=== PATIENT | male | born 1960 | race African-American/Black ===

== ENCOUNTER 2020-07-15 20:37 | Inpatient (IN) | payer MEDICARE ==
[~2020-07-15 20:37] MED LIST: Glycopyrrolate 0.2 MG/ML 5 ML SYRINGE ONE; Iopamidol 370 76% 100 ML VIAL ONE; Iopamidol-370 76% 500 ML 1 ML ONE; Ondansetron PF 4 MG/2 ML Vial ONE; PHENYLEPHRINE-NS 100 MCG/ML 10 ML SYRINGE ONE; Rocuronium Bromide 10 MG/ML (10ML VIAL) ONE; Succinylcholine 200 MG/10 ml SYRINGE FS ONE; ePHEDrine 50 MG/ML VIAL ONE
--- NOTE | 2020-07-15 20:54 | CT ---
Head CT without contrast: 07/15/2020 COMPARISON: None HISTORY: Stroke protocol TECHNIQUE: Axial CT imaging at 2.5 mm intervals from vertex through skull base without contrast. Chris nal and sagittal reformatted imaging obtained. FINDINGS: There is no intracranial hemorrhage, midline shift, or mass effect. There is a extra-axial mass with internal foci of coarse calcification measuring approximately 2.4 cm within the inferior right frontotemporal region on axial image 24. A meningioma is favored. No acute osseous abnormality. IMPRESSION: No intracranial hemorrhage. Probable right-sided meningioma. Results called to Dr. Goode 8:50 PM 07/15/2020
[2020-07-15 21:32] LABS: #Basophils 0.1 thou/uL (0.0-0.2); #Eosinphils 0.1 thou/uL (0.0-0.7); #Lymphocytes 1.1 thou/uL (1.20-3.40); #Monocytes 0.9 thou/uL (0.11-0.59); #Neutrophils 11.6 thou/uL (1.40-6.50); %Basophils 0.4 % (0.0-1.0); %Eosinophils 0.7 % (0.0-10.0); %Lymphocytes 7.8 % (21.0-51.0); %Monocytes 6.7 % (0.0-10.0); %Neutrophils 84.4 % (42.0-75.0); Hemoglobin 13.2 g/dL (14.0-18.0); Mean Corpuscular HGB CONC 31.6 g/dL (32.0-36.0); Mean Corpuscular Hemoglobin 29.9 pg (27.0-31.0); Mean Corpuscular Volume 94.5 fL (78.0-98.0); Platelet Count 181 thou/uL (130-400); RBC Distribution Width 12.6 % (11.5-14.5); Red Blood Cell (RBC) Count 4.42 mill/uL (4.70-6.10); White Blood Cell (WBC) Count 13.7 thou/uL (4.8-10.8)
[2020-07-15] MEDS ORDERED: Heparin 10,000 UNITS/ 10 ML VIAL ONE (21:35)
[2020-07-15 21:38] LABS: INR-International Normal Ratio 1.3; PTT 32.1 sec (22.9-36.1); Prothrombin Time 16.1 sec (12.0-14.7)
[2020-07-15] MEDS ORDERED: Fentanyl 100 MCG/2 ML VIAL ONE (21:39)
[2020-07-15 21:50] LABS: ALT (SGPT) 8 U/L (8-55); AST (SGOT) 15 U/L (5-34); Albumin 2.3 g/dL (3.4-4.8); Alkaline Phosphatase 91 U/L (40-110); Anion Gap 13 mmol/L (10-20); BUN (Urea Nitrogen) 42 mg/dL (8.4-25.7); Bilirubin, Total 0.5 mg/dL (0.2-1.2); CK (CPK) 42 U/L (30-200); Calc. Creatinine Clearance 0 mL/min (70-130); Calcium 6.9 mg/dL (7.8-10.44); Carbon Dioxide 21 mmol/L (23-31); Chloride 107 mmol/L (98-107); Globulin 2.5 g/dL (2.4-3.5); Glucose 83 mg/dL (80-115); Potassium 4.5 mmol/L (3.5-5.1); Protein, Total 4.8 g/dL (5.8-8.1); Sodium 136 mmol/L (136-145)
[2020-07-15] MEDS ORDERED: Ketamine 50 MG/ML (10ML VIAL) ONE (22:01)
[2020-07-15] MEDS ORDERED: Phenylephrine 10 MG/ML VIAL ONE (22:02)
[2020-07-15 22:04] LABS: CKMB 1.8 ng/mL (0-6.6)
[2020-07-15] MEDS ORDERED: Labetalol HCl 100 MG/20 ML VIAL SLOW IVP PRN (22:42)
[2020-07-15] MEDS ORDERED: niCARdipine 25 MG in Sodium Chloride 0.9% 250 ML 240 ML IVPB PRN (22:42)
[2020-07-15] MEDS ORDERED: hydrALAZINE 20 MG/ML VIAL SLOW IVP PRN (22:42)
[2020-07-15] MEDS ORDERED: Mag-Al 1200 mg/1200 mg/30 ML UDCUP PO PRN (22:42)
[2020-07-15] MEDS ORDERED: SUGAMMADEX SODIUM 200 MG/2 ML VIAL ONE (22:48)
[2020-07-15 22:57] LABS: SARS-CoV-2 NAA Rapid Test Not Detected (NotDetected)
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
[2020-07-16 00:31] LABS: Anion Gap 16 mmol/L (10-20); BUN (Urea Nitrogen) 42 mg/dL (8.4-25.7); Calc. Creatinine Clearance 51 mL/min (70-130); Calcium 7.8 mg/dL (7.8-10.44); Carbon Dioxide 16 mmol/L (23-31); Chloride 107 mmol/L (98-107); Glucose 91 mg/dL (80-115); Potassium 5.5 mmol/L (3.5-5.1); Sodium 133 mmol/L (136-145)
--- NOTE | 2020-07-16 02:27 | PDOC.HHP ---
Hospitalist HPI Right sided weakness History of Present Illness: 59-year-old -Burkin[place] male with past medical history of severe systolic CHF with EF of 10 to 15%, dilated cardiomyopathy, recurrent pleural effusions and recurrent ascites on every 2 weekly paracentesis, last episode was 1 week ago with patient reported 10 L of fluid removal, history of A. fib on amiodarone and on chronic anticoagulation with Eliquis; chronic hypotension, CKD stage III admitted after developing sudden onset right-sided weakness. CTA [place] of [place] imaging shows complete occlusion of the distal ICA artery with occlusion of the proximal MCA and SORAIDA on the right. Patient patient was felt not to be a candidate for TPA given Eliquis use. He was taking to [facility] and underwent a mechanical thrombectomy with confucianism of flow to the right middle cerebral artery. Post procedure patient is extubated and in CCU now. His blood pressure is running in the high 80s over 50s but with MAP over 70s. He still intermittently drowsy but conversant. He is able to answer simple questions. He denies any symptoms now. He denies any headache or dizziness. He states he has chronic low blood pressure. Hospitalist team consulted for comanagement Allergies/Adverse Reactions: Allergy/AdvReac Type Severity Reaction Status Date / Time spironolactone Allergy Verified 07/13/20 14:04 Home Medications: Medication Instructions Recorded Confirmed Type Furosemide 60 mg PO TID 05/30/20 07/13/20 History Amiodarone [Cordarone] 200 mg PO BID 06/14/20 07/13/20 History Apixaban [Eliquis] 5 mg PO BID 06/14/20 07/13/20 History Carvedilol [Coreg] 3.125 mg PO BID 06/14/20 07/13/20 History Digoxin [Digox] 62.5 mcg PO DAILY 06/14/20 07/13/20 History Acetaminophen W/ Codeine 1 tab PO DAILY PRN 06/21/20 07/13/20 History [Acetaminophen/Codeine #3] Past History: PMHx: Chronic hypertension Dilated cardiomyopathy Systolic CHF Atrial fibrillation Recurrent ascites Pleural effusions CKD PSHx: Extensive FHx: Noncontributory Social: Former smoker currently quit, no history of alcohol or illicit drug use Hospitalist HPI ROS All other systems reviewed; all pertinent +/- noted in HPI/Subj Hospitalist Exam Vitals: Vital Signs (12 hours) Pulse Ox 07/15/20 23:30 96 Weight Weight 184 lb 1.376 oz Most Recent Monitor Data Heart Rate from ECG 70 NIBP 89/68 NIBP BP-Mean 75 Respiration from ECG 2 SpO2 99 General Appearance: NAD, awake alert General - other findings: Intermittently drowsy but conversant Eye: PERRL, anicteric sclera ENT: normocephalic atraumatic, dry oral mucosa Neck: supple, symmetric Heart: RRR, no murmur Respiratory: CTAB, no wheezes Gastrointestinal: soft, non-tender, distended Extremities: no cyanosis, no clubbing, no edema Skin: normal turgor, no lesions Neurological: facial droop (Right facial droop, no pronator drift) Musculoskeletal: normal tone, normal strength Psychiatric: normal affect, normal behavior, A&O x 3 Hospitalist Results Result Diagrams: 07/15/20 21:06 07/15/20 23:51 Lab results: Laboratory Last Values WBC 13.7 thou/uL (4.8-10.8) H 07/15/20 21:06 RBC 4.42 mill/uL (4.70-6.10) L 07/15/20 21:06 Hgb 13.2 g/dL (14.0-18.0) L 07/15/20 21:06 Hct 41.8 % (42.0-52.0) L 07/15/20 21:06 MCV 94.5 fL (78.0-98.0) 07/15/20 21:06 MCH 29.9 pg (27.0-31.0) 07/15/20 21:06 MCHC 31.6 g/dL (32.0-36.0) L 07/15/20 21:06 RDW 12.6 % (11.5-14.5) 07/15/20 21:06 Plt Count 181 thou/uL (130-400) 07/15/20 21:06 MPV 9.0 fL (7.4-10.4) 07/15/20 21:06 Neutrophils % 84.4 % (42.0-75.0) H 07/15/20 21:06 Lymphocytes % 7.8 % (21.0-51.0) L 07/15/20 21:06 Monocytes % 6.7 % (0.0-10.0) 07/15/20 21:06 Eosinophils % 0.7 % (0.0-10.0) 07/15/20 21:06 Basophils % 0.4 % (0.0-1.0) 07/15/20 21:06 Neutrophils # 11.6 thou/uL (1.40-6.50) H 07/15/20 21:06 Lymphocytes # 1.1 thou/uL (1.20-3.40) L 07/15/20 21:06 Monocytes # 0.9 thou/uL (0.11-0.59) H 07/15/20 21:06 Eosinophils # 0.1 thou/uL (0.0-0.7) 07/15/20 21:06 Basophils # 0.1 thou/uL (0.0-0.2) 07/15/20 21:06 PT 16.1 sec (12.0-14.7) H 07/15/20 21:06 INR 1.3 07/15/20 21:06 APTT 32.1 sec (22.9-36.1) 07/15/20 21:06 Sodium 133 mmol/L (136-145) L 07/15/20 23:51 Potassium 5.5 mmol/L (3.5-5.1) H 07/15/20 23:51 Chloride 107 mmol/L (98-107) 07/15/20 23:51 Carbon Dioxide 16 mmol/L (23-31) L 07/15/20 23:51 Anion Gap 16 mmol/L (10-20) 07/15/20 23:51 BUN 42 mg/dL (8.4-25.7) H 07/15/20 23:51 Creatinine 1.79 mg/dL (0.7-1.3) H 07/15/20 23:51 Estimated GFR (MDRD) 47 07/15/20 23:51 Glucose 91 mg/dL (80-115) 07/15/20 23:51 Calcium 7.8 mg/dL (7.8-10.44) 07/15/20 23:51 Total Bilirubin 0.5 mg/dL (0.2-1.2) 07/15/20 21:06 AST 15 U/L (5-34) 07/15/20 21:06 ALT 8 U/L (8-55) 07/15/20 21:06 Alkaline Phosphatase 91 U/L (40-110) 07/15/20 21:06 Creatine Kinase 42 U/L (30-200) 07/15/20 21:06 CK-MB (CK-2) 1.8 ng/mL (0-6.6) 07/15/20 21:06 Troponin I 0.159 ng/mL (< 0.028) H 07/15/20 21:06 Serum Total Protein 4.8 g/dL (5.8-8.1) L 07/15/20 21:06 Albumin 2.3 g/dL (3.4-4.8) L 07/15/20 21:06 Globulin 2.5 g/dL (2.4-3.5) 07/15/20 21:06 Albumin/Globulin Ratio 0.9 g/dL (1.2-2.2) L 07/15/20 21:06 SARS-CoV-2 Rap RNA(RT-PCR) Not Detected (NotDetected) 07/15/20 21:49 Hospitalist H&P A/P (1) Right sided cerebral infarction Code(s): I63.9 - CEREBRAL INFARCTION, UNSPECIFIED Status: Acute (2) Hyperkalemia Code(s): E87.5 - HYPERKALEMIA Status: Acute (3) Acute kidney injury Code(s): N17.9 - ACUTE KIDNEY FAILURE, UNSPECIFIED Status: Acute (4) History of chronic kidney disease Code(s): Z87.448 - PERSONAL HISTORY OF OTHER DISEASES OF URINARY SYSTEM Status: Acute (5) Atrial fibrillation Code(s): I48.91 - UNSPECIFIED ATRIAL FIBRILLATION Status: Acute (6) Chronic anticoagulation Code(s): Z79.01 - LONG-TERM (CURRENT) USE OF ANTICOAGULANTS Status: Acute (7) Metabolic acidosis Code(s): E87.2 - ACIDOSIS Status: Acute (8) Chronic hypotension Code(s): I95.89 - OTHER HYPOTENSION Status: Acute Plan: New CVAwith right cerebral involvementstatus post mechanical thrombectomy Continue neurology follow-up Continue plan for Eliquis Continue anticoagulation Allow for permissive hypertension Chronic hypotensionstable MAP but given acute CVA will need blood pressure higher Given recurrent ascites we avoid fluid overload Start midodrine 5 mg 3 times daily Recurrent ascites still mild distention, but no urgent need for paracentesis now Acute on chronic chronic kidney injuryobtain urine nephrology consult Correct metabolic acidosis Obtain urine sodium/creatinine Likely due to cardiorenal syndrome Metabolic acidosis with hyperkalemiawe will start sodium bicarb Avoid nephrotoxin Systolic CHF/atrial fibrillationresume Eliquis Advance directivefull code Thank you for this consult, we will continue to follow
[2020-07-16 04:06] LABS: Cardiac Risk 2.8 (Less than 4.5)
[2020-07-16 04:08] LABS: Troponin I 0.145 ng/mL (< 0.028)
--- NOTE | 2020-07-16 07:40 | CT ---
PRELIMINARY REPORT/[facility]/EMERGENCY AFTER HOURS PROCEDURE: EXAM: CT Head Without Intravenous Contrast. CLINICAL HISTORY: CVA FOLLOW UP TECHNIQUE: Axial computed tomography images of the head/brain without intravenous contrast. COMPARISON: July 15, 2020 FINDINGS: BRAIN: No acute intraparenchymal hemorrhage. 2.3 cm partially calcified meningioma in the region of the nancy vian fissure complex on the right is again noted. No CT evidence for acute territorial infarct. No m idline shift or extra-axial collection. VENTRICLES: No hydrocephalus. ORBITS: The orbits are unremarkable. SINUSES AND MASTOIDS: The paranasal sinuses and mastoid air cells are clear. SOFT TISSUES: No significant facial or scalp soft tissue swelling evident. No radiopaque foreign body is seen. BONES: No acute skull fracture. IMPRESSION: No acute intracranial abnormality. ELECTRONICALLY SIGNED BY: Papi Shaw MD Jul 16, 2020 4:48:19 AM REVENUE OFFICER This report is intended for review by the ordering physician only, in accordance of law. If you recei ve this report in error, please call [facility] at [phone]. FINAL REPORT HEAD CT WITHOUT CONTRAST: HISTORY: Follow-up CVA. COMPARISON: 07/15/2020. FINDINGS: No parenchymal hemorrhage. No extra-axial hematoma. No midline shift. Basilar cisterns are patent. Brain volume is age-appropriate. There is loss of the insular ribbon sign suggesting cytotoxic edema involving the right temporal lobe . Basilar cisterns are patent. No midline shift. No evidence of hydrocephalus. Calvarium is intact. Adequate aeration of the sinuses and mastoid air cells. IMPRESSION: 1. This report is in DISAGREEMENT with the initial report by [facility]. 2. There appears to be loss of the right insular ribbon sign suggesting changes due to a right MCA d istribution infarct. Better interrogation with brain MRI may be beneficial. POS: PPP
[2020-07-16] MEDS: Sodium Bicarbonate Tab 325 MG TAB PO SCH ×3 (11:54→20:40)
[2020-07-16] MEDS: Midodrine HCl 5 MG TAB PO SCH ×3 (11:54→20:40)
[2020-07-16 13:06] LABS: Potassium, Urine 52.2 mmol/L; Sodium, Urine Less than 20 mmol/L (Not Available)
--- NOTE | 2020-07-16 15:04 | CON ---
NEUROLOGY CONSULTATION DATE OF CONSULTATION: 07/16/2020 REASON FOR CONSULTATION: CVA status post mechanical thrombectomy. HISTORY OF PRESENT HISTORY: Marci is a 59-year-old male with medical history significant for severe systolic congestive heart failure with ejection fraction of 10% to 15%, dilated cardiomyopathy, recurrent pleural effusions and ascites on weekly paracentesis, presented with acute onset right-sided weakness. The head CT was done, which was negative for acute intracranial pathology. CTA of the [place] showed complete occlusion of the distal ICA with occlusion of the proximal MCA and SORAIDA on the right. The patient was on Eliquis, so not a candidate for tPA. He was taken to the cath lab tech and underwent mechanical thrombectomy with baptism of flow to the right middle cerebral artery. He was extubated. The patient was extubated postprocedure and is currently in ICU and is doing well. The patient denies nausea, vomiting, headache, chest pain, abdominal pain, recent illness or recent exposure to COVID.-19. He also denies problems with speech, swallowing, double vision, loss of vision or loss of consciousness, abnormal involuntary movements associated with the episode. Allergies/Adverse Reactions: Allergy/AdvReac Type Severity Reaction Status Date / Time spironolactone Allergy Verified 07/13/20 14:04 Home Medications: Medication Instructions Recorded Confirmed Type Furosemide 60 mg PO TID 05/30/20 07/13/20 History Amiodarone [Cordarone] 200 mg PO BID 06/14/20 07/13/20 History Apixaban [Eliquis] 5 mg PO BID 06/14/20 07/13/20 History Carvedilol [Coreg] 3.125 mg PO BID 06/14/20 07/13/20 History Digoxin [Digox] 62.5 mcg PO DAILY 06/14/20 07/13/20 History Acetaminophen W/ Codeine 1 tab PO DAILY PRN 06/21/20 07/13/20 History [Acetaminophen/Codeine #3] PAST MEDICAL HISTORY: Chronic hypertension, dilated cardiomyopathy, systolic congestive heart failure, atrial fibrillation, recurrent ascites, pleural effusions, chronic kidney disease. PAST SURGICAL HISTORY: Multiple surgeries. FAMILY HISTORY: Noncontributory. SOCIAL HISTORY: The patient is a former smoker. Denies alcohol or illegal drug use. REVIEW OF SYSTEMS: All systems reviewed and were negative except the pertinent positives and negatives mentioned in the HPI. PHYSICAL EXAMINATION: CVS: Regular rate and rhythm. CHEST: Clear. ABDOMEN: Soft. NECK: Supple. NEUROLOGIC: Mental Status: The patient is alert and oriented to person, place, and time. Speech is clear. Cranial nerves 2 through 12 intact except 7, right facial droop. Motor, muscle, tone and bulk are normal. Right pronator drift. . Sensory intact. Cerebellar, finger-nose testing intact. Gait deferred due to patient's safety reason. DATA REVIEWED: Reviewed the labs were significant for white count of 13.7. Hyponatremia 133 sodium and 5.5 hyperkalemia. He also has chronic kidney disease with BUN of 42 and creatinine of 1.79. Head CT did not reveal acute intracranial pathology. WBC 13.7 thou/uL (4.8-10.8) H 07/15/20 21:06 RBC 4.42 mill/uL (4.70-6.10) L 07/15/20 21:06 Hgb 13.2 g/dL (14.0-18.0) L 07/15/20 21:06 Hct 41.8 % (42.0-52.0) L 07/15/20 21:06 MCV 94.5 fL (78.0-98.0) 07/15/20 21:06 MCH 29.9 pg (27.0-31.0) 07/15/20 21:06 MCHC 31.6 g/dL (32.0-36.0) L 07/15/20 21:06 RDW 12.6 % (11.5-14.5) 07/15/20 21:06 Plt Count 181 thou/uL (130-400) 07/15/20 21:06 MPV 9.0 fL (7.4-10.4) 07/15/20 21:06 Neutrophils % 84.4 % (42.0-75.0) H 07/15/20 21:06 Lymphocytes % 7.8 % (21.0-51.0) L 07/15/20 21:06 Monocytes % 6.7 % (0.0-10.0) 07/15/20 21:06 Eosinophils % 0.7 % (0.0-10.0) 07/15/20 21:06 Basophils % 0.4 % (0.0-1.0) 02/21/21 21:06 Neutrophils # 11.6 thou/uL (1.40-6.50) H 07/15/20 21:06 Lymphocytes # 1.1 thou/uL (1.20-3.40) L 07/15/20 21:06 Monocytes # 0.9 thou/uL (0.11-0.59) H 07/15/20 21:06 Eosinophils # 0.1 thou/uL (0.0-0.7) 07/15/20 21:06 Basophils # 0.1 thou/uL (0.0-0.2) 07/15/20 21:06 PT 16.1 sec (12.0-14.7) H 07/15/20 21:06 INR 1.3 07/15/20 21:06 APTT 32.1 sec (22.9-36.1) 07/15/20 21:06 Sodium 133 mmol/L (136-145) L 07/15/20 23:51 Potassium 5.5 mmol/L (3.5-5.1) H 07/15/20 23:51 Chloride 107 mmol/L (98-107) 07/15/20 23:51 Carbon Dioxide 16 mmol/L (23-31) L 07/15/20 23:51 Anion Gap 16 mmol/L (10-20) 07/15/20 23:51 BUN 42 mg/dL (8.4-25.7) H 07/15/20 23:51 Creatinine 1.79 mg/dL (0.7-1.3) H 07/15/20 23:51 Estimated GFR (MDRD) 47 07/15/20 23:51 Glucose 91 mg/dL (80-115) 07/15/20 23:51 Calcium 7.8 mg/dL (7.8-10.44) 07/15/20 23:51 Total Bilirubin 0.5 mg/dL (0.2-1.2) 07/15/20 21:06 AST 15 U/L (5-34) 07/15/20 21:06 ALT 8 U/L (8-55) 07/15/20 21:06 Alkaline Phosphatase 91 U/L (40-110) 07/15/20 21:06 Creatine Kinase 42 U/L (30-200) 07/15/20 21:06 CK-MB (CK-2) 1.8 ng/mL (0-6.6) 07/15/20 21:06 Troponin I 0.159 ng/mL (< 0.028) H 07/15/20 21:06 Serum Total Protein 4.8 g/dL (5.8-8.1) L 07/15/20 21:06 Albumin 2.3 g/dL (3.4-4.8) L 07/15/20 21:06 Globulin 2.5 g/dL (2.4-3.5) 07/15/20 21:06 Albumin/Globulin Ratio 0.9 g/dL (1.2-2.2) L 07/15/20 21:06 SARS-CoV-2 Rap RNA(RT-PCR) Not Detected (NotDetected) 07/15/20 21:49 ASSESSMENT AND PLAN: (1) Right sided cerebral infarction Code(s): I63.9 - CEREBRAL INFARCTION, UNSPECIFIED Status: Acute (2) Hyperkalemia Code(s): E87.5 - HYPERKALEMIA Status: Acute (3) Acute kidney injury Code(s): N17.9 - ACUTE KIDNEY FAILURE, UNSPECIFIED Status: Acute (4) History of chronic kidney disease Code(s): Z87.448 - PERSONAL HISTORY OF OTHER DISEASES OF URINARY SYSTEM Status: Acute (5) Atrial fibrillation Code(s): I48.91 - UNSPECIFIED ATRIAL FIBRILLATION Status: Acute (6) Chronic anticoagulation Code(s): Z79.01 - MCFP (CURRENT) USE OF ANTICOAGULANTS Status: Acute (7) Metabolic acidosis Code(s): E87.2 - ACIDOSIS Status: Acute (8) Chronic hypotension Code(s): I95.89 - OTHER HYPOTENSION Status: Acute Mr. Sergey Covarrubias is a 59-year-old male who presented with acute onset of right-sided weakness. A CTA of the head and neck reviewed, which showed occlusion of the middle cerebral artery. He was taken to the cath lab tech and is status post mechanical thrombectomy and has been doing well. Continue Eliquis for secondary stroke prevention and atrial fibrillation. Neuro checks every 2 hours. Permissive control of blood pressure at this time. Strict control of blood glucose. Telemetry to rule out arrhythmias. Continue home medications. Continue medical management per primary team and Nephrology, Oncology, PT/OT/Speech. MRI of the brain to rule out acute intracranial process. DVT prophylaxis with SCD. We will continue to follow. Thank you for the consult. Job ID: [id number] MTDD
--- NOTE | 2020-07-16 17:08 | MRI ---
MRI BRAIN WITHOUT CONTRAST: History: Follow up CVA. FINDINGS: Correlation is made with the CT scan of 4:33 a.m. from the same date. There is restricted diffusion in the right MCA territory consistent with acute infarction. There is a lso a small focus of restricted diffusion in the right cerebellar hemisphere, consistent with an acut e lacunar infarction. There is no hemorrhage, midline shift, or abnormal extraaxial fluid collections seen. The ventricular size is appropriate and the basilar cisterns patent. IMPRESSION: 1. Right MCA infarction. 2. Acute lacunar infarction in the right cerebellar hemisphere. 3. Clinically correlate for an embolic phenomenon. POS: OFF
--- NOTE | 2020-07-16 19:06 | CON ---
DATE OF CONSULTATION: CONSULTING PHYSICIAN: Janet Vaz MD REQUESTING PHYSICIAN: Josy Rogers MD REASON FOR CONSULTATION: Acute on chronic kidney disease and contrast exposure. IMPRESSION: 1. Acute on chronic kidney disease, likely hemodynamically mediated. 2. Possible incipient contrast nephropathy. 3. Cerebrovascular accident, status post CT angio and thrombolysis. PLAN: 1. The patient is currently on contrast prophylaxis, and we will renally dose all medications and avoid potentially nephrotoxic agents. 2. We will monitor this patient's kidney function closely as the patient stands a significant possible risk of contrast nephropathy that was exacerbating or worsening the current renal status. 3. Further management will be dependent on the clinical course. HISTORY OF PRESENT ILLNESS: A 59-year-old gentleman who presented here with right-sided weakness with a known history of systolic CHF with EF of about 10% to 15% with recurrent pleural effusions, dilated cardiomyopathy, status post paracentesis every [address] angio of the [place] of [place] shows complete occlusion of the distal IC artery with occlusion of the proximal MCA and SORAIDA on the right, having been on Eliquis, felt not to be a candidate for tPA and was taken to the labor contract analyst and did undergo mechanical thrombectomy with rastafari to the right middle cerebral artery. The patient was noted with elevated creatinine of 1.79 with a tendency for this creatinine to rise given status post contrast exposure. As a result of this, the decision was taken to involve Renal in the management of this case. PAST MEDICAL HISTORY: As documented in the body of the history. SOCIAL HISTORY: Showed a remote tobacco user. No current alcohol or tobacco use. REVIEW OF SYSTEMS: As documented in the body of history. All the other systems were reviewed and found not to be significantly related to present illness. FAMILY HISTORY: Nonsignificant. PHYSICAL EXAMINATION: VITAL SIGNS: The patient was found with the following vital signs; blood pressure 199/70 with a heart rate of 75, respiratory rate of 16, and O2 saturations of 99%. HEENT: Unremarkable. CARDIOVASCULAR SYSTEM: First and second heart sounds were heard. RESPIRATORY SYSTEM: Clear to auscultation. DIGESTIVE SYSTEM: Revealed distended abdomen with evidence of ascites. EXTREMITIES: No severe peripheral edema. SKIN: No new gross rash. LYMPHATICS: No peripheral lymphadenopathy. SUMMARY: A 59-year-old gentleman with advanced cardiomyopathy who presented here with cerebrovascular accident, status post tissue plasminogen activator and contrast exposure with evidence of increase in creatinine noted as well as potassium. Thank you for this consultation. We will follow with you. Job ID: [id number]
[2020-07-16] MEDS: Atorvastatin Calcium 40 MG TAB PO SCH (20:40)
[2020-07-16] MEDS: Acetaminophen 325 MG TAB PO PRN (23:55)
[2020-07-17] MEDS: Sodium Bicarbonate Tab 325 MG TAB PO SCH ×3 (07:56→21:37)
[2020-07-17] MEDS: Midodrine HCl 5 MG TAB PO SCH ×3 (07:57→21:36)
--- NOTE | 2020-07-17 10:34 | CT ---
CT angiogram head CT angiogram neck: 07/15/2020 COMPARISON: None HISTORY: Left-sided stroke symptoms TECHNIQUE: Axial CT imaging at 1.25 mm intervals from the lung apices through the vertex with IV cont rast using a CT angiogram protocol. Coronal and sagittal 3-D reformatted imaging obtained. FINDINGS: The imaged lung apices demonstrate scattered subpleural and centrilobular emphysematous wilmer nge. There is an incompletely imaged transvenous pacing device present. The origin of the innominate artery, right common carotid artery, right subclavian artery, left commo n carotid artery, and left subclavian artery demonstrate patency. There is no hemodynamically significant stenosis on the basis of NASCET criteria involving the internal carotid artery or the com mon carotid artery on either side. There is mild atherosclerotic plaque at the origin of bilateral internal carotid arteries. The proximal aspect of the right vertebral artery is completely obscured by venous contrast media. Th e mid and distal right vertebral artery demonstrate patency. The left vertebral artery is dominant. Origin of the left vertebral artery appears unremarkable. The basilar artery is patent. Branches of the basilar artery appear patent. No central vascular occlu marko or saccular aneurysm is seen involving the posterior circulation on either side. There is a filling defect involving the distal intracranial ICA on the right at its bifurcation with extension into the proximal M1 and proximal A1 segment on the right. The distal aspect of the right M1 segment appears completely occluded with diffuse lack of arterial blood flow involving the majorit y of the right MCA territory. The A1 segment is otherwise unremarkable bilaterally. Distal SORAIDA branches appear intact. The M1 segment, MCA bifurcation and the distal MCA branches on the left appea r intact. There is a extra-axial mass on the right in the frontotemporal region with internal calcification and diffuse enhancement measuring 2.4 cm, most consistent with a meningioma. No lymphadenopathy is appreciated within the neck. No acute osseous abnormality is seen. IMPRESSION: Acute thrombosis of the distal intracranial internal carotid artery on the right with ext ension into the proximal right A1 and M1 segment with additional distal right M1 thrombosis and extensive multifocal M2 branch occlusion on the right. Dr. Goode made aware at 9:05 PM 07/15/2020 Transcribed Date/Time: 07/17/2020 10:34 AM
--- NOTE | 2020-07-17 14:35 | PRG ---
DATE OF SERVICE: 07/17/2020 SUBJECTIVE: The patient noted with the following vital signs. OBJECTIVE: VITAL SIGNS: Heart rate of 75, blood pressure 90/63, O2 saturations 100%. HEENT: Unremarkable. CARDIOVASCULAR SYSTEM: First and second heart sounds were heard. RESPIRATORY SYSTEM: Clear to auscultation. DIGESTIVE SYSTEM: Revealed a benign abdomen. EXTREMITIES: No peripheral edema. LABORATORY INVESTIGATION: None. IMPRESSION: 1. Pksru-fr-otyiomm kidney disease hemodynamically mediated. 2. Potential contrast-induced nephropathy. No evidence as there are no labs. PLAN: 1. We will get a chemistry and monitor his renal function closely. 2. Further management to be dependent on the clinical course. Job ID: [id number]
[2020-07-17 14:40] LABS: Anion Gap 14 mmol/L (10-20); BUN (Urea Nitrogen) 44 mg/dL (8.4-25.7); Calc. Creatinine Clearance 55 mL/min (70-130); Calcium 8.7 mg/dL (7.8-10.44); Carbon Dioxide 21 mmol/L (23-31); Chloride 104 mmol/L (98-107); Glucose 98 mg/dL (80-115); Potassium 5.4 mmol/L (3.5-5.1); Sodium 134 mmol/L (136-145)
[2020-07-17] MEDS ORDERED: Aspirin 81 mg Enteric Coated Tablet PO SCH (14:45)
--- NOTE | 2020-07-17 14:59 | PDOC.HOSPP ---
- Subjective Encounter Date: 07/17/20 Encounter Time: 14:45 Subjective: f/u for R MCA CVA s/p mech thrombectomy with mild residual R-sided weakness, persistent mild dysarthria and L facial droop. Tolerating po intake and ambulated short distance in room. - Objective Vital Signs & Weight: Vital Signs (12 hours) Temp Pulse Pulse BP BP Pulse Ox Pulse Ox 07/17/20 12:00 97.5 F L 07/17/20 09:25 84 80 102/75 103/74 95 07/17/20 09:00 97.7 F 07/17/20 08:36 98 07/17/20 07:35 98 07/17/20 04:00 97.5 F L Pulse Ox 07/17/20 12:00 07/17/20 09:25 100 07/17/20 09:00 07/17/20 08:36 07/17/20 07:35 07/17/20 04:00 Weight Admit Weight 182 lb Weight 187 lb 9.814 oz Most Recent Monitor Data Heart Rate from ECG 80 NIBP 99/59 NIBP BP-Mean 72 Respiration from ECG 19 SpO2 98 I&O: 07/16/20 07/17/20 07/18/20 06:59 06:59 06:59 Intake Total 1690 740 Output Total 100 725 170 Balance -100 965 570 Result Diagrams: 07/15/20 21:06 07/18/20 03:31 EKG Reviewed by me: Yes (Tele - SR with PVC's) Hospitalist ROS - Medication Medications: Active Medications Generic Name Dose Route Start Last Admin Trade Name Freq PRN Reason Stop Dose Admin Acetaminophen 650 mg 07/15/20 22:42 07/16/20 23:55 Acetaminophen 325 Mg Tab PO 650 mg Q6H PRN Administration Headache/Fever/Mild Pain (1-3) Atorvastatin Calcium 40 mg 07/16/20 21:00 07/16/20 20:40 Atorvastatin Calcium 40 Mg Tab PO 40 mg HS CHANO Administration Midodrine 5 mg 07/16/20 09:00 07/17/20 14:43 Midodrine Hcl 5 Mg Tab PO 5 mg TID CHANO Administration Sodium Bicarbonate 1,300 mg 07/16/20 09:00 07/17/20 14:42 Sodium Bicarbonate Tab 325 Mg Tab PO 1,300 mg TID CHANO Administration Sodium Chloride 10 ml 07/16/20 09:00 07/17/20 07:57 Flush - Normal Saline 10 Ml Syringe IVF 10 ml Q12HR CHANO Administration Hospitalist Exam Vitals: Vital Signs (12 hours) Temp Pulse Pulse BP BP Pulse Ox Pulse Ox 07/17/20 12:00 97.5 F L 07/17/20 09:25 84 80 102/75 103/74 95 07/17/20 09:00 97.7 F 07/17/20 08:36 98 07/17/20 07:35 98 07/17/20 04:00 97.5 F L Pulse Ox 07/17/20 12:00 07/17/20 09:25 100 07/17/20 09:00 07/17/20 08:36 07/17/20 07:35 07/17/20 04:00 Weight Admit Weight 182 lb Weight 187 lb 9.814 oz Most Recent Monitor Data Heart Rate from ECG 80 NIBP 99/59 NIBP BP-Mean 72 Respiration from ECG 19 SpO2 98 General Appearance: NAD, awake alert Eye: PERRL, anicteric sclera ENT: normocephalic atraumatic, no oropharyngeal lesions Neck: supple, symmetric, no JVD, no thyromegaly, no lymphadenopathy Heart: RRR, no gallops, no rubs, normal peripheral pulses Heart - other findings: S1, S2 Respiratory: CTAB, no wheezes, no rales, no ronchi, normal chest expansion Gastrointestinal: soft, non-tender, non-distended, normal bowel sounds, no palpable masses Extremities: no cyanosis, no clubbing, no edema Skin: normal turgor Neurological - other findings: L facial droop, dysarthria, LUE weakness Musculoskeletal: generalized weakness Psychiatric: normal affect, A&O x 3 Hosp A/P (1) Right sided cerebral infarction Code(s): I63.9 - CEREBRAL INFARCTION, UNSPECIFIED Status: Acute Plan: s/p [facility] thrombectomy, mild residual deficits noted, start ASA 81mg daily (2) Acute kidney injury Code(s): N17.9 - ACUTE KIDNEY FAILURE, UNSPECIFIED Status: Acute Plan: Avoid nephrotoxic meds and limit contrast exposure, serial creatinine (3) Atrial fibrillation Code(s): I48.91 - UNSPECIFIED ATRIAL FIBRILLATION Status: Chronic Qualifiers: Atrial fibrillation type: longstanding persistent Qualified Code(s): I48.11 - Longstanding persistent atrial fibrillation Plan: Resume Eliquis (4) Chronic anticoagulation Code(s): Z79.01 - PRISON (CURRENT) USE OF ANTICOAGULANTS Status: Acute Plan: Resume Eliquis (5) Chronic hypotension Code(s): I95.89 - OTHER HYPOTENSION Status: Acute (6) Metabolic acidosis Code(s): E87.2 - ACIDOSIS Status: Acute Plan: Improved, continue to monitor - Plan plan discussed w/ family, PT/OT, social media job titles, speech therapy, out of bed/ambulate, DVT proph w/SCDs Stable overall Continue routine stroke protocol Start ASA 81mg daily Resume Eliquis 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 SNF vs HH with PT AM lab: BMP
--- NOTE | 2020-07-17 16:02 | PDOC.NEUPN ---
- Subjective Encounter Date: 07/17/20 Subjective: Mr Covarrubias is doing much better and seems to be improved except for facial droop and dysarthria. - Objective Vital Signs & Weight: Vital Signs (12 hours) Temp Pulse Pulse BP BP Pulse Ox Pulse Ox 07/17/20 15:00 97.5 F L 07/17/20 12:00 97.5 F L 07/17/20 09:25 84 80 102/75 103/74 95 07/17/20 09:00 97.7 F 07/17/20 08:36 98 07/17/20 07:35 98 Pulse Ox 07/17/20 15:00 07/17/20 12:00 07/17/20 09:25 100 07/17/20 09:00 07/17/20 08:36 07/17/20 07:35 Weight Admit Weight 182 lb Weight 187 lb 9.814 oz Most Recent Monitor Data Heart Rate from ECG 78 NIBP 80/59 NIBP BP-Mean 66 Respiration from ECG 13 SpO2 99 I&O: 07/16/20 07/17/20 07/18/20 06:59 06:59 06:59 Intake Total 1690 740 Output Total 100 725 170 Balance -100 965 570 Result Diagrams: 07/15/20 21:06 07/17/20 14:07 Radiology Reviewed by me: Yes EKG Reviewed by me: Yes ROS - Review of Systems Constitutional: denies: fever, chills, sweats, weakness, malaise, other Eyes: denies: pain, vision change, conjunctivae inflammation, eyelid inflammation, redness, other ENT: denies: ear pain, ear discharge, nose pain, nose discharge, nose congestion, mouth pain, mouth swelling, throat pain, throat swelling, other Respiratory: denies: cough, dry, shortness of breath, hemoptysis, SOB with excertion, pleuritic pain, sputum, wheezing, other Gastrointestinal: denies: nausea, vomiting, abdominal pain, diarrhea, constipation, melena, hematochezia, other Genitourinary: denies: dysuria, frequency, incontinence, hematuria, retention, other Musculoskeletal: denies: neck pain, shoulder pain, arm pain, back pain, hand pain, leg pain, foot pain, other Skin: denies: rash, lesions, chiquita, bruising, other Neurological: reports: change in speech. denies: weakness, numbness, incoordination, confusion, seizures, other - Medication Medications: Active Medications Generic Name Dose Route Start Last Admin Trade Name Sae PRN Reason Stop Dose Admin Acetaminophen 650 mg 07/15/20 22:42 07/16/20 23:55 Acetaminophen 325 Mg Tab PO 650 mg Q6H PRN Administration Headache/Fever/Mild Pain (1-3) Atorvastatin Calcium 40 mg 07/16/20 21:00 07/16/20 20:40 Atorvastatin Calcium 40 Mg Tab PO 40 mg HS CHANO Administration Midodrine 5 mg 07/16/20 09:00 07/17/20 14:43 Midodrine Hcl 5 Mg Tab PO 5 mg TID CHANO Administration Sodium Bicarbonate 1,300 mg 07/16/20 09:00 07/17/20 14:42 Sodium Bicarbonate Tab 325 Mg Tab PO 1,300 mg TID CHANO Administration Sodium Chloride 10 ml 07/16/20 09:00 07/17/20 07:57 Flush - Normal Saline 10 Ml Syringe IVF 10 ml Q12HR CHANO Administration - Exam General Appearance: awake alert Eye: PERRL ENT: normocephalic atraumatic Neck: supple Respiratory: CTAB Cardiovascular: no murmur Gastrointestinal: soft Extremities: no cyanosis Skin: normal turgor Neurological: no new deficit, facial droop, speech deficit Musculoskeletal: normal tone, normal strength, no muscle wasting PSYCH: normal affect, normal behavior, A&O x 3, oriented to person, oriented to place, oriented to time Results - Labs Result Diagrams: 07/15/20 21:06 07/17/20 14:07 Lab results: WBC 13.7 thou/uL (4.8-10.8) H 07/15/20 21:06 Hgb 13.2 g/dL (14.0-18.0) L 07/15/20 21:06 Hct 41.8 % (42.0-52.0) L 07/15/20 21:06 MCV 94.5 fL (78.0-98.0) 07/15/20 21:06 Plt Count 181 thou/uL (130-400) 07/15/20 21:06 Neutrophils % 84.4 % (42.0-75.0) H 07/15/20 21:06 Sodium 134 mmol/L (136-145) L 07/17/20 14:07 Potassium 5.4 mmol/L (3.5-5.1) H 07/17/20 14:07 Chloride 104 mmol/L (98-107) 07/17/20 14:07 Carbon Dioxide 21 mmol/L (23-31) L 07/17/20 14:07 BUN 44 mg/dL (8.4-25.7) H 07/17/20 14:07 Creatinine 1.71 mg/dL (0.7-1.3) H 07/17/20 14:07 Glucose 98 mg/dL (80-115) 07/17/20 14:07 Calcium 8.7 mg/dL (7.8-10.44) 07/17/20 14:07 Total Bilirubin 0.5 mg/dL (0.2-1.2) 07/15/20 21:06 AST 15 U/L (5-34) 07/15/20 21:06 ALT 8 U/L (8-55) 07/15/20 21:06 Alkaline Phosphatase 91 U/L (40-110) 07/15/20 21:06 Creatine Kinase 42 U/L (30-200) 07/15/20 21:06 CK-MB (CK-2) 1.8 ng/mL (0-6.6) 07/15/20 21:06 Troponin I 0.145 ng/mL (< 0.028) H 07/16/20 03:15 Serum Total Protein 4.8 g/dL (5.8-8.1) L 07/15/20 21:06 Albumin 2.3 g/dL (3.4-4.8) L 07/15/20 21:06 - Radiology Interpretation MRI - head Additional Comment: MRI brain consistent with acute infarction in the RMCA territory. PN A/P (1) Right sided cerebral infarction Code(s): I63.9 - CEREBRAL INFARCTION, UNSPECIFIED Status: Acute (2) Acute kidney injury Code(s): N17.9 - ACUTE KIDNEY FAILURE, UNSPECIFIED Status: Acute (3) Atrial fibrillation Code(s): I48.91 - UNSPECIFIED ATRIAL FIBRILLATION Status: Acute (4) Chronic anticoagulation Code(s): Z79.01 - ON SITE SERVICES SPECIALIST (CURRENT) USE OF ANTICOAGULANTS Status: Acute (5) Chronic hypotension Code(s): I95.89 - OTHER HYPOTENSION Status: Acute (6) History of chronic kidney disease Code(s): Z87.448 - PERSONAL HISTORY OF OTHER DISEASES OF URINARY SYSTEM Status: Acute (7) Hyperkalemia Code(s): E87.5 - HYPERKALEMIA Status: Acute (8) Metabolic acidosis Code(s): E87.2 - ACIDOSIS Status: Acute - Plan Daily Plan: plan discussed w/ family ( at bedside), PT/OT, speech therapy, out of bed/ambulate 59 year old presented with stroke like symptoms and is s/p mechanical thrombectomy. Neurological deficits much improved since admission. MRI brain consistent with acute infarction in the RMCA territory and also in the right cerebellar region. High suspicion for embolic phenomena. Consider cardiology input. Awaiting 2 D echo to evaluate further. CTA Head showed acute thrombosis of ICA intracranially on the right and is st atus post mechanical thrombectomy. HCT 24 hours post tpa negative for bleed. Resume anticoagulation. Continue Telemetry Neurochecks every 4 hours. Permissive BP control. Strict control of blood glucose. NPO till cleared by speech Start aspirin and high intensity statin for secondary stroke prevention. PT/OT/Speech Continue home medications DVT prophylaxis with SCD's. Continue medical management per primary team. Plan didcussed with patient, at bedside and primary attending Dr. Cobb.
--- NOTE | 2020-07-17 17:20 | PRG ---
DATE OF SERVICE: 07/17/2020 SUBJECTIVE: The patient is seen, seems to be doing much better, noted with the following vital signs. OBJECTIVE: VITAL SIGNS: Afebrile, temperature 97.5, pulse 84, blood pressure 102/75, O2 saturation of 95%. HEENT: Unremarkable. CARDIOVASCULAR SYSTEM: First and second heart sounds were heard. RESPIRATORY SYSTEM: Clear to auscultation. DIGESTIVE SYSTEM: Revealed a benign abdomen. EXTREMITIES: No peripheral edema. SKIN: No new gross rash. LYMPHATICS: No peripheral lymphadenopathy. LABORATORY INVESTIGATION: Showed a potassium of 5.4, sodium of 134, bicarb of 21, and creatinine of 1.71. IMPRESSION: 1. Chronic kidney disease stage 3. 2. CVA, status post mechanical thrombectomy. 3. Hyperkalemia with mild hyponatremia. 4. Mild metabolic acidosis. PLAN: 1. Continue to monitor the renal function, especially status post recent exposure to contrast, which begins to manifest 48 to 72 hours post-exposure. 2. Very close attention to be paid to the potassium. 3. A little bit confused that the patient is on Cardene drip as well as midodrine. We will have the Primary Team look into this as these 2 medications seem to be counteracting each other. 4. We reduced the sodium bicarbonate supplementation. 5. Further management to be dependent on the clinical course. Job ID: [id number]
[2020-07-17] MEDS: Apixaban 5 MG TAB PO SCH (21:36)
[2020-07-17] MEDS: Atorvastatin Calcium 40 MG TAB PO SCH (21:36)
[2020-07-18 04:06] LABS: Anion Gap 13 mmol/L (10-20); BUN (Urea Nitrogen) 45 mg/dL (8.4-25.7); Calc. Creatinine Clearance 65 mL/min (70-130); Calcium 8.5 mg/dL (7.8-10.44); Carbon Dioxide 21 mmol/L (23-31); Chloride 104 mmol/L (98-107); Glucose 96 mg/dL (80-115); Potassium 5.4 mmol/L (3.5-5.1); Sodium 133 mmol/L (136-145)
[2020-07-18] MEDS: Aspirin 81 mg Enteric Coated Tablet PO SCH (08:31)
[2020-07-18] MEDS: Apixaban 5 MG TAB PO SCH ×2 (08:31→21:01)
[2020-07-18] MEDS: Midodrine HCl 5 MG TAB PO SCH ×3 (08:31→21:01)
[2020-07-18] MEDS: Sodium Bicarbonate Tab 325 MG TAB PO SCH ×2 (08:31→21:01)
[2020-07-18] MEDS ORDERED: Senokot S 8.6-50 MG TAB PO SCH (10:45)
--- NOTE | 2020-07-18 11:05 | PDOC.HOSPP ---
- Subjective Encounter Date: 07/18/20 Encounter Time: 11:00 Subjective: f/u for R MCA territorial CVA s/p mech thrombectomy with residual L-sided weakness/mild dysarthria. Overall feels ok but c/o constipation with last BM a few days prior. - Objective Vital Signs & Weight: Vital Signs (12 hours) Temp Pulse Ox 07/18/20 08:00 97.6 F 07/18/20 07:30 95 07/18/20 07:20 98 07/18/20 04:00 97.4 F L 07/18/20 00:00 97.6 F Weight Admit Weight 182 lb Weight 186 lb 4.65 oz Most Recent Monitor Data Heart Rate from ECG 81 NIBP 92/71 NIBP BP-Mean 78 Respiration from ECG 19 SpO2 93 I&O: 07/17/20 07/18/20 07/19/20 06:59 06:59 06:59 Intake Total 1690 1760 890 Output Total 725 970 0 Balance 965 790 890 Result Diagrams: 07/15/20 21:06 07/18/20 03:31 Additional Labs: Laboratory Tests 07/15/20 07/15/20 07/15/20 21:06 21:49 23:51 Potassium 4.5 5.5 H TSH 3rd Generation SARS-CoV-2 Rap RNA(RT-PCR) Not Detected 07/16/20 07/17/20 03:15 14:07 Potassium 5.4 H TSH 3rd Generation 3.2745 SARS-CoV-2 Rap RNA(RT-PCR) EKG Reviewed by me: Yes (Tele - SR) Hospitalist ROS - Medication Medications: Active Medications Generic Name Dose Route Start Last Admin Trade Name Freq PRN Reason Stop Dose Admin Acetaminophen 650 mg 07/15/20 22:42 07/16/20 23:55 Acetaminophen 325 Mg Tab PO 650 mg Q6H PRN Administration Headache/Fever/Mild Pain (1-3) Apixaban 5 mg 07/17/20 21:00 07/18/20 08:31 Apixaban 5 Mg Tab PO 5 mg BID CHANO Administration Aspirin 81 mg 07/18/20 09:00 07/18/20 08:31 Aspirin 81 Mg Enteric Coated Tablet PO 81 mg DAILY CHANO Administration Atorvastatin Calcium 40 mg 07/16/20 21:00 07/17/20 21:36 Atorvastatin Calcium 40 Mg Tab PO 40 mg HS CHANO Administration Midodrine 5 mg 07/16/20 09:00 07/18/20 08:31 Midodrine Hcl 5 Mg Tab PO 5 mg TID CHANO Administration Senna/Docusate Sodium 1 tab 07/18/20 10:45 07/18/20 10:48 Senokot S 8.6-50 Mg Tab PO 07/18/20 12:45 1 tab NOW CHANO Administration Sodium Bicarbonate 650 mg 07/17/20 21:00 07/18/20 08:31 Sodium Bicarbonate Tab 325 Mg Tab PO 650 mg BID CHANO Administration Sodium Chloride 10 ml 07/16/20 09:00 07/18/20 08:32 Flush - Normal Saline 10 Ml Syringe IVF 10 ml Q12HR CHANO Administration Hospitalist Exam Vitals: Vital Signs (12 hours) Temp Pulse Ox 07/18/20 08:00 97.6 F 07/18/20 07:30 95 07/18/20 07:20 98 07/18/20 04:00 97.4 F L 07/18/20 00:00 97.6 F Weight Admit Weight 182 lb Weight 186 lb 4.65 oz Most Recent Monitor Data Heart Rate from ECG 81 NIBP 92/71 NIBP BP-Mean 78 Respiration from ECG 19 SpO2 93 General Appearance: NAD, awake alert Eye: PERRL, anicteric sclera ENT: normocephalic atraumatic, no oropharyngeal lesions Neck: supple, symmetric, no JVD, no thyromegaly, no lymphadenopathy Heart: no gallops, no rubs, normal peripheral pulses, irregular Heart - other findings: S1, S2 Respiratory: CTAB, no wheezes, no rales, no ronchi, normal chest expansion Gastrointestinal: soft, non-tender, non-distended, normal bowel sounds, no palpable masses Extremities: no cyanosis, no clubbing, no edema Skin: normal turgor, no lesions Neurological: no new deficit Neurological - other findings: L facial droop, mild dysarthria Musculoskeletal: normal tone, generalized weakness Psychiatric: normal affect, A&O x 3 Hosp A/P (1) Right sided cerebral infarction Code(s): I63.9 - CEREBRAL INFARCTION, UNSPECIFIED Status: Acute [facility], mild residual deficits, continue routine stroke protocol, ASA/Lipitor (2) Acute kidney injury Code(s): N17.9 - ACUTE KIDNEY FAILURE, UNSPECIFIED Status: Acute (3) Atrial fibrillation Code(s): I48.91 - UNSPECIFIED ATRIAL FIBRILLATION Status: Chronic Qualifiers: Atrial fibrillation type: longstanding persistent Qualified Code(s): I48.11 - Longstanding persistent atrial fibrillation (4) Chronic anticoagulation Code(s): 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 SNF vs HH with PT AM lab: BMP ? Home in 24h Transfer to Stroke Unit
--- NOTE | 2020-07-18 13:07 | PDOC.NEUPN ---
- Subjective Encounter Date: 07/18/20 Subjective: Mr. Covarrubias is a 59-year-old who presented with left-sided weakness and dy sarthria. Marked improvement in symptoms since admission. He is s/p mechanical thrombectomy and doing well. - Objective Vital Signs & Weight: Vital Signs (12 hours) Temp Pulse Ox 07/18/20 12:00 97.5 F L 07/18/20 08:00 97.6 F 07/18/20 07:30 95 07/18/20 07:20 98 07/18/20 04:00 97.4 F L Weight Admit Weight 182 lb Weight 186 lb 4.65 oz Most Recent Monitor Data Heart Rate from ECG 74 NIBP 96/68 NIBP BP-Mean 77 Respiration from ECG 15 SpO2 97 I&O: 07/17/20 07/18/20 07/19/20 06:59 06:59 06:59 Intake Total 1690 1760 1290 Output Total 725 970 0 Balance 035 651 5038 Result Diagrams: 07/15/20 21:06 07/18/20 03:31 Radiology Reviewed by me: Yes EKG Reviewed by me: Yes ROS - Review of Systems Constitutional: denies: fever, chills, sweats, weakness, malaise, other Eyes: denies: pain, vision change, conjunctivae inflammation, eyelid inflammation, redness, other ENT: denies: ear pain, ear discharge, nose pain, nose discharge, nose congestion, mouth pain, mouth swelling, throat pain, throat swelling, other Genitourinary: denies: dysuria, frequency, incontinence, hematuria, retention, other Musculoskeletal: denies: neck pain, shoulder pain, arm pain, back pain, hand pain, leg pain, foot pain, other Neurological: reports: weakness, change in speech. denies: numbness, incoordination, confusion, seizures, other - Medication Medications: Active Medications Generic Name Dose Route Start Last Admin Trade Name Freq PRN Reason Stop Dose Admin Acetaminophen 650 mg 07/15/20 22:42 07/16/20 23:55 Acetaminophen 325 Mg Tab PO 650 mg Q6H PRN Administration Headache/Fever/Mild Pain (1-3) Apixaban 5 mg 07/17/20 21:00 07/18/20 08:31 Apixaban 5 Mg Tab PO 5 mg BID CHANO Administration Aspirin 81 mg 07/18/20 09:00 07/18/20 08:31 Aspirin 81 Mg Enteric Coated Tablet PO 81 mg DAILY CHANO Administration Atorvastatin Calcium 40 mg 07/16/20 21:00 07/17/20 21:36 Atorvastatin Calcium 40 Mg Tab PO 40 mg HS CHANO Administration Midodrine 5 mg 07/16/20 09:00 07/18/20 08:31 Midodrine Hcl 5 Mg Tab PO 5 mg TID CHANO Administration Sodium Bicarbonate 650 mg 07/17/20 21:00 07/18/20 08:31 Sodium Bicarbonate Tab 325 Mg Tab PO 650 mg BID CHANO Administration Sodium Chloride 10 ml 07/16/20 09:00 07/18/20 08:32 Flush - Normal Saline 10 Ml Syringe IVF 10 ml Q12HR CHANO Administration - Exam General Appearance: awake alert Eye: PERRL ENT: normocephalic atraumatic Neck: supple Respiratory: CTAB Cardiovascular: RRR Gastrointestinal: soft Extremities: no cyanosis Skin: normal turgor Neurological: no new deficit, speech deficit Musculoskeletal: normal tone, no muscle wasting PSYCH: normal affect, normal behavior, A&O x 3, oriented to person Results - Labs Result Diagrams: 07/15/20 21:06 07/18/20 03:31 Lab results: WBC 13.7 thou/uL (4.8-10.8) H 07/15/20 21:06 Hgb 13.2 g/dL (14.0-18.0) L 07/15/20 21:06 Hct 41.8 % (42.0-52.0) L 07/15/20 21:06 MCV 94.5 fL (78.0-98.0) 07/15/20 21:06 Plt Count 181 thou/uL (130-400) 07/15/20 21:06 Neutrophils % 84.4 % (42.0-75.0) H 07/15/20 21:06 Sodium 133 mmol/L (136-145) L 07/18/20 03:31 Potassium 5.4 mmol/L (3.5-5.1) H 07/18/20 03:31 Chloride 104 mmol/L (98-107) 07/18/20 03:31 Carbon Dioxide 21 mmol/L (23-31) L 07/18/20 03:31 BUN 45 mg/dL (8.4-25.7) H 07/18/20 03:31 Creatinine 1.43 mg/dL (0.7-1.3) H 07/18/20 03:31 Glucose 96 mg/dL (80-115) 07/18/20 03:31 Calcium 8.5 mg/dL (7.8-10.44) 07/18/20 03:31 Total Bilirubin 0.5 mg/dL (0.2-1.2) 07/15/20 21:06 AST 15 U/L (5-34) 07/15/20 21:06 ALT 8 U/L (8-55) 07/15/20 21:06 Alkaline Phosphatase 91 U/L (40-110) 07/15/20 21:06 Creatine Kinase 42 U/L (30-200) 07/15/20 21:06 CK-MB (CK-2) 1.8 ng/mL (0-6.6) 07/15/20 21:06 Troponin I 0.145 ng/mL (< 0.028) H 07/16/20 03:15 Serum Total Protein 4.8 g/dL (5.8-8.1) L 07/15/20 21:06 Albumin 2.3 g/dL (3.4-4.8) L 07/15/20 21:06 - Radiology Interpretation MRI - head Additional Comment: MRI of the brain was consistent with acute infarction in the right middle cerebral artery territory PN A/P (1) Right sided cerebral infarction Code(s): I63.9 - CEREBRAL INFARCTION, UNSPECIFIED Status: Acute (2) Acute kidney injury Code(s): N17.9 - ACUTE KIDNEY FAILURE, UNSPECIFIED Status: Acute (3) Atrial fibrillation Code(s): I48.91 - UNSPECIFIED ATRIAL FIBRILLATION Status: Chronic Qualifiers: Atrial fibrillation type: longstanding persistent Qualified Code(s): I48.11 - Longstanding persistent atrial fibrillation (4) Chronic anticoagulation Code(s): Z79.01 - ALF (CURRENT) USE OF ANTICOAGULANTS Status: Acute (5) Chronic hypotension Code(s): I95.89 - OTHER HYPOTENSION Status: Acute (6) History of chronic kidney disease Code(s): Z87.448 - PERSONAL HISTORY OF OTHER DISEASES OF URINARY SYSTEM Status: Acute (7) Hyperkalemia Code(s): E87.5 - HYPERKALEMIA Status: Acute (8) Metabolic acidosis Code(s): E87.2 - ACIDOSIS Status: Acute - Plan Daily Plan: PT/OT, speech therapy, DVT proph w/SCDs 59 year old presented with stroke like symptoms and is s/p mechanical thrombectomy. Neurological deficits much improved since admission. MRI brain consistent with acute infarction in the RMCA territory and also in the right cerebellar region. High suspicion for embolic phenomena. Consider cardiology input. Awaiting 2 D echo to evaluate further. CTA Head showed acute thrombosis of ICA intracranially on the right and is status post mechanical thrombectomy. HCT 24 hours post tpa negative for bleed. Resume anticoagulation. Continue Telemetry Neurochecks every 4 hours. Permissive BP control. Strict control of blood glucose. Continue aspirin and high intensity statin for secondary stroke prevention. PT/OT/Speech Continue home medications DVT prophylaxis with SCD's. Continue medical management per primary team. Plan didcussed with the patient
--- NOTE | 2020-07-18 15:16 | PRG ---
DATE OF SERVICE: 07/18/2020 SUBJECTIVE: The patient noted with the following vital signs. OBJECTIVE: VITAL SIGNS: Blood pressure 96/68, pulse 72, afebrile. HEENT: Unremarkable. CARDIOVASCULAR SYSTEM: First and second heart sounds were heard. RESPIRATORY SYSTEM: Clear to auscultation. DIGESTIVE SYSTEM: Revealed a benign abdomen. EXTREMITIES: No peripheral edema. SKIN: No new gross rash. LYMPHATICS: No peripheral lymphadenopathy. LABORATORY INVESTIGATION: Showed a potassium of 5.4, bicarb of 21, BUN of 45, creatinine 1.43. IMPRESSION: 1. Hyperkalemia. 2. Acute on chronic kidney disease, improving. 3. Mild metabolic acidosis. 4. Mild hyponatremia. 5. Cerebrovascular accident. PLAN: 1. Continue current renal supportive measures. 2. We will likely give this patient Kayexalate to address this hyperkalemia. 3. Further management to be dependent on the clinical course. Job ID: [id number]
[2020-07-18] MEDS: Senokot S 8.6-50 MG TAB PO SCH (21:01)
[2020-07-18] MEDS: Atorvastatin Calcium 40 MG TAB PO SCH (21:01)
[2020-07-19 04:45] LABS: Anion Gap 13 mmol/L (10-20); BUN (Urea Nitrogen) 45 mg/dL (8.4-25.7); Calc. Creatinine Clearance 68 mL/min (70-130); Calcium 8.4 mg/dL (7.8-10.44); Carbon Dioxide 25 mmol/L (23-31); Chloride 100 mmol/L (98-107); Glucose 91 mg/dL (80-115); Potassium 4.4 mmol/L (3.5-5.1); Sodium 134 mmol/L (136-145)
[2020-07-19] MEDS: Midodrine HCl 5 MG TAB PO SCH ×3 (10:11→20:29)
[2020-07-19] MEDS: Sodium Bicarbonate Tab 325 MG TAB PO SCH ×2 (10:12→20:29)
[2020-07-19] MEDS: Senokot S 8.6-50 MG TAB PO SCH ×2 (10:12→20:30)
[2020-07-19] MEDS: Aspirin 81 mg Enteric Coated Tablet PO SCH (10:13)
--- NOTE | 2020-07-19 11:56 | RAD ---
Modified barium swallow HISTORY: Dysphagia following cerebral infarction. FINDINGS: Exam was performed in conjunction with speech pathology with multiple consistencies. Video review is available and shows good bolus formation and retropulsion. Prominent early spill seen only with mechanical soft texture. With cup sip of thin liquid, there was an episode of deep penetration. No aspiration. Mild residue with good clearance upon secondary swallowing. The esophagus below the level of the hypopharynx was not evaluated. Please see separate detailed report from speech pathology.
[2020-07-19] MEDS: Apixaban 5 MG TAB PO SCH ×2 (13:04→20:28)
--- NOTE | 2020-07-19 13:31 | PDOC.NEUPN ---
- Subjective Encounter Date: 07/19/20 Subjective: Mr. Covarrubias is a 59-year-old male who is status post mechanical thrombectomy and has been doing well. He continues to have dysarthria and swallowing issues. He underwent modified barium swallow today. - Objective Vital Signs & Weight: Vital Signs (12 hours) Temp Pulse Ox 07/19/20 12:00 97.5 F L 07/19/20 09:00 97.7 F 07/19/20 07:20 95 Weight Admit Weight 182 lb Weight 187 lb 13.341 oz Most Recent Monitor Data Heart Rate from ECG 77 NIBP 96/73 NIBP BP-Mean 80 Respiration from ECG 18 SpO2 98 I&O: 07/18/20 07/19/20 07/20/20 06:59 06:59 06:59 Intake Total 1760 1880 418 Output Total 970 450 200 Balance 790 1430 218 Result Diagrams: 07/15/20 21:06 07/19/20 03:16 Radiology Reviewed by me: Yes EKG Reviewed by me: Yes ROS - Review of Systems Constitutional: denies: fever, chills, sweats, weakness, malaise, other Eyes: denies: pain, vision change, conjunctivae inflammation, eyelid inflammation, redness, other Respiratory: denies: cough, dry, shortness of breath, hemoptysis, SOB with excertion, pleuritic pain, sputum, wheezing, other Gastrointestinal: denies: nausea, vomiting, abdominal pain, diarrhea, constipation, melena, hematochezia, other Genitourinary: denies: dysuria, frequency, incontinence, hematuria, retention, other Musculoskeletal: denies: neck pain, shoulder pain, arm pain, back pain, hand pain, leg pain, foot pain, other Neurological: reports: change in speech - Medication Medications: Active Medications Generic Name Dose Route Start Last Admin Trade Name Freq PRN Reason Stop Dose Admin Acetaminophen 650 mg 07/15/20 22:42 07/16/20 23:55 Acetaminophen 325 Mg Tab PO 650 mg Q6H PRN Administration Headache/Fever/Mild Pain (1-3) Apixaban 5 mg 07/17/20 21:00 07/19/20 13:04 Apixaban 5 Mg Tab PO Not Given BID CHANO Aspirin 81 mg 07/18/20 09:00 07/19/20 10:13 Aspirin 81 Mg Enteric Coated Tablet PO 81 mg DAILY CHANO Administration Atorvastatin Calcium 40 mg 07/16/20 21:00 07/18/20 21:01 Atorvastatin Calcium 40 Mg Tab PO 40 mg HS CHANO Administration Midodrine 5 mg 07/16/20 09:00 07/19/20 10:11 Midodrine Hcl 5 Mg Tab PO 5 mg TID CHANO Administration Senna/Docusate Sodium 1 tab 07/18/20 21:00 07/19/20 10:12 Senokot S 8.6-50 Mg Tab PO 1 tab BID CHANO Administration Sodium Bicarbonate 650 mg 07/17/20 21:00 07/19/20 10:12 Sodium Bicarbonate Tab 325 Mg Tab PO 650 mg BID CHANO Administration Sodium Chloride 10 ml 07/16/20 09:00 07/19/20 10:13 Flush - Normal Saline 10 Ml Syringe IVF 10 ml Q12HR CHANO Administration - Exam General Appearance: awake alert Eye: PERRL ENT: normocephalic atraumatic Neck: supple Respiratory: CTAB Cardiovascular: no murmur Gastrointestinal: soft Extremities: no cyanosis Skin: normal turgor Neurological: no new deficit, facial droop, speech deficit Musculoskeletal: normal tone, no muscle wasting PSYCH: normal affect, normal behavior, A&O x 3 Results - Labs Result Diagrams: 07/15/20 21:06 07/19/20 03:16 Lab results: WBC 13.7 thou/uL (4.8-10.8) H 07/15/20 21:06 Hgb 13.2 g/dL (14.0-18.0) L 07/15/20 21:06 Hct 41.8 % (42.0-52.0) L 07/15/20 21:06 MCV 94.5 fL (78.0-98.0) 07/15/20 21:06 Plt Count 181 thou/uL (130-400) 07/15/20 21:06 Neutrophils % 84.4 % (42.0-75.0) H 07/15/20 21:06 Sodium 134 mmol/L (136-145) L 07/19/20 03:16 Potassium 4.4 mmol/L (3.5-5.1) 07/19/20 03:16 Chloride 100 mmol/L (98-107) 07/19/20 03:16 Carbon Dioxide 25 mmol/L (23-31) 07/19/20 03:16 BUN 45 mg/dL (8.4-25.7) H 07/19/20 03:16 Creatinine 1.36 mg/dL (0.7-1.3) H 07/19/20 03:16 Glucose 91 mg/dL (80-115) 07/19/20 03:16 Calcium 8.4 mg/dL (7.8-10.44) 07/19/20 03:16 Total Bilirubin 0.5 mg/dL (0.2-1.2) 07/15/20 21:06 AST 15 U/L (5-34) 07/15/20 21:06 ALT 8 U/L (8-55) 07/15/20 21:06 Alkaline Phosphatase 91 U/L (40-110) 07/15/20 21:06 Creatine Kinase 42 U/L (30-200) 07/15/20 21:06 CK-MB (CK-2) 1.8 ng/mL (0-6.6) 07/15/20 21:06 Troponin I 0.145 ng/mL (< 0.028) H 07/16/20 03:15 Serum Total Protein 4.8 g/dL (5.8-8.1) L 07/15/20 21:06 Albumin 2.3 g/dL (3.4-4.8) L 07/15/20 21:06 - Radiology Interpretation MRI - head Additional Comment: MRI of the head was consistent with infarct in the right middle cerebral artery territory PN A/P (1) Right sided cerebral infarction Code(s): I63.9 - CEREBRAL INFARCTION, UNSPECIFIED Status: Acute (2) Acute kidney injury Code(s): N17.9 - ACUTE KIDNEY FAILURE, UNSPECIFIED Status: Acute (3) Atrial fibrillation Code(s): I48.91 - UNSPECIFIED ATRIAL FIBRILLATION Status: Chronic Qualifiers: Atrial fibrillation type: longstanding persistent Qualified Code(s): I48.11 - Longstanding persistent atrial fibrillation (4) Chronic anticoagulation Code(s): Z79.01 - LONGTERM (CURRENT) USE OF ANTICOAGULANTS Status: Acute (5) Chronic hypotension Code(s): I95.89 - OTHER HYPOTENSION Status: Acute (6) History of chronic kidney disease Code(s): Z87.448 - PERSONAL HISTORY OF OTHER DISEASES OF URINARY SYSTEM Status: Acute (7) Hyperkalemia Code(s): E87.5 - HYPERKALEMIA Status: Acute (8) Metabolic acidosis Code(s): E87.2 - ACIDOSIS Status: Acute - Plan Daily Plan: PT/OT, speech therapy, DVT proph w/lovenox 59 year old presented with stroke like symptoms and is s/p mechanical thrombectomy. Neurological deficits much improved since admission. Patient underwent modified barium swallow today. Awaiting results. MRI brain consistent with acute infarction in the RMCA territory and also in the right cerebellar region. High suspicion for embolic phenomena. Consider cardiology input. Awaiting 2 D echo to evaluate further. CTA Head showed acute thrombosis of ICA intracranially on the right and is status post mechanical thrombectomy. HCT 24 hours post procedure negative for bleed. Resume anticoagulation. Continue Telemetry Neurochecks every 4 hours. Permissive BP control. Strict control of blood glucose. Continue aspirin and high intensity statin for secondary stroke prevention. PT/OT/Speech Continue home medications Acute on chronic renal failure. Nephrology is on board DVT prophylaxis with SCD's. Continue medical management per primary team and nephrology. Plan discussed with the patient
[2020-07-19 13:54] VITALS: BMI 25.4
[2020-07-19] MEDS ORDERED: Albumin 25% 25 GM/100 ML BOT IVPB PRN (15:05)
--- NOTE | 2020-07-19 15:07 | PDOC.HOSPP ---
- Subjective Encounter Date: 07/19/20 Encounter Time: 15:00 Subjective: f/u for R MCA territorial [facility]A [facility] Overall feels much better, ambulated today, tolerating po intake. MBS essentially negative. - Objective Vital Signs & Weight: Vital Signs (12 hours) Temp Pulse Ox 07/19/20 12:00 97.5 F L 07/19/20 09:00 97.7 F 07/19/20 07:20 95 Weight Admit Weight 182 lb Weight 187 lb 13.341 oz Most Recent Monitor Data Heart Rate from ECG 77 NIBP 96/73 NIBP BP-Mean 80 Respiration from ECG 18 SpO2 98 I&O: 07/18/20 07/19/20 07/20/20 06:59 06:59 06:59 Intake Total 1760 1880 418 Output Total 970 450 200 Balance 790 1430 218 Result Diagrams: 07/15/20 21:06 07/19/20 03:16 Additional Labs: Laboratory Tests 07/15/20 07/15/20 07/15/20 21:06 21:49 23:51 Potassium 4.5 5.5 H TSH 3rd Generation SARS-CoV-2 Rap RNA(RT-PCR) Not Detected 07/16/20 07/17/20 03:15 14:07 Potassium 5.4 H TSH 3rd Generation 3.2745 SARS-CoV-2 Rap RNA(RT-PCR) Laboratory Tests 07/15/20 07/15/20 07/15/20 21:06 21:49 23:51 Sodium Potassium 4.5 5.5 H BUN TSH 3rd Generation SARS-CoV-2 Rap RNA(RT-PCR) Not Detected 07/16/20 07/17/20 07/18/20 03:15 14:07 03:31 Sodium 133 L Potassium 5.4 H 5.4 H BUN 45 H TSH 3rd Generation 3.2745 SARS-CoV-2 Rap RNA(RT-PCR) Radiology Reviewed by me: Yes (MBS - no aspiration) EKG Reviewed by me: Yes (Tele - SR with PVC's) Hospitalist ROS - Medication Medications: Active Medications Generic Name Dose Route Start Last Admin Trade Name Freq PRN Reason Stop Dose Admin Acetaminophen 650 mg 07/15/20 22:42 07/16/20 23:55 Acetaminophen 325 Mg Tab PO 650 mg Q6H PRN Administration Headache/Fever/Mild Pain (1-3) Apixaban 5 mg 07/17/20 21:00 07/19/20 13:04 Apixaban 5 Mg Tab PO Not Given BID [facility] Aspirin 81 mg 07/18/20 09:00 07/19/20 10:13 Aspirin 81 Mg Enteric Coated Tablet PO 81 mg DAILY CHANO Administration Atorvastatin Calcium 40 mg 07/16/20 21:00 07/18/20 21:01 Atorvastatin Calcium 40 Mg Tab PO 40 mg HS [facility] Administration Midodrine 5 mg 07/16/20 09:00 07/19/20 10:11 Midodrine Hcl 5 Mg Tab PO 5 mg TID CHANO Administration Senna/Docusate Sodium 1 tab 07/18/20 21:00 07/19/20 10:12 Senokot S 8.6-50 Mg Tab PO 1 tab BID [facility] Administration Sodium Bicarbonate 650 mg 07/17/20 21:00 07/19/20 10:12 Sodium Bicarbonate Tab 325 Mg Tab PO 650 mg BID [facility] Administration Sodium Chloride 10 ml 07/16/20 09:00 07/19/20 10:13 Flush - Normal Saline 10 Ml Syringe IVF 10 ml Q12HR CHANO Administration Hospitalist Exam Vitals: Vital Signs (12 hours) Temp Pulse Ox 07/19/20 12:00 97.5 F L 07/19/20 09:00 97.7 F 07/19/20 07:20 95 Weight Admit Weight 182 lb Weight 187 lb 13.341 oz Most Recent Monitor Data Heart Rate from ECG 77 NIBP 96/73 NIBP BP-Mean 80 Respiration from ECG 18 SpO2 98 General Appearance: NAD, awake alert Eye: PERRL, anicteric sclera ENT: normocephalic atraumatic, no oropharyngeal lesions Neck: supple, symmetric, no JVD, no thyromegaly Heart: RRR, no gallops, no rubs, normal peripheral pulses Heart - other findings: S1, S2 Respiratory: CTAB, no wheezes, no rales, no ronchi, normal chest expansion Gastrointestinal: soft, normal bowel sounds, no palpable masses, no guarding, no rigidity, distended Extremities: no cyanosis, no clubbing, no edema Skin: normal turgor Neurological - other findings: L facial droop, mild dysarthria Musculoskeletal: normal tone, generalized weakness Psychiatric: normal affect, A&O x 3 Hosp A/P (1) Right sided cerebral infarction Code(s): I63.9 - CEREBRAL INFARCTION, UNSPECIFIED Status: Acute Plan: s/p [facility] thrombectomy, continue ASA/Lipitor, general stroke protocol (2) Acute kidney injury Code(s): N17.9 - ACUTE KIDNEY FAILURE, UNSPECIFIED Status: Acute Plan: Improved, continue supportive mgmt, avoid nephrotoxic meds and limit contrast (3) Atrial fibrillation Code(s): I48.91 - UNSPECIFIED ATRIAL FIBRILLATION Status: Chronic Qualifiers: Atrial fibrillation type: longstanding persistent Qualified Code(s): I48.11 - Longstanding persistent atrial fibrillation (4) Chronic anticoagulation Code(s): Z79.01 - TANK CARPENTER (CURRENT) USE OF ANTICOAGULANTS Status: Acute (5) Chronic hypotension Code(s): I95.89 - OTHER HYPOTENSION Status: Acute (6) Metabolic acidosis Code(s): E87.2 - ACIDOSIS Status: Acute (7) Ascites Code(s): R18.8 - OTHER ASCITES Status: Chronic Qualifiers: Ascites type: other type Qualified Code(s): R18.8 - Other ascites Plan: Plan for US guided paracentesis today, give Albumin 25gm IV x 1 now - Plan plan discussed w/ family, PT/OT, medical social worker, speech therapy, out of bed/ambulate Stable overall Continue routine stroke protocol Start ASA 81mg daily Resume Eliquis 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
[2020-07-19] MEDS ORDERED: Lidocaine 1% PF 5 ML VIAL ONE (15:32)
[2020-07-19] MEDS ORDERED: Sodium Bicarbonate 2.5 MEQ/5 ML VIAL ONE (15:32)
--- NOTE | 2020-07-19 16:50 | ULT ---
Sonographic guided paracentesis HISTORY: Symptomatic ascites. FINDINGS: After explaining the procedure and answering all questions, sonographic survey showed a lar ge amount of free fluid throughout the abdomen. Sterile technique, buffered local anesthesia, sonographic guidance, and a right lateral approach were used to carefully advance a 19-gauge Yueh needle and catheter into the free fluid. Catheter was left to drain a total volume of 10.0 L of milky white liquid. Catheter was removed with minimal fluid remaining. Patient tolerated the procedure well and was returned in improved condition. IMPRESSION : Technically successful sonographic guided paracentesis 10.0 L.
--- NOTE | 2020-07-19 17:11 | PRG ---
DATE OF SERVICE: 07/19/2020 OBJECTIVE: VITAL SIGNS: The patient noted with the following vital signs; blood pressure 96/73, heart rate of 77, O2 saturation of 98%. HEENT: Unremarkable. CARDIOVASCULAR: First and second heart sounds were heard. RESPIRATORY SYSTEM: Clear to auscultation. DIGESTIVE SYSTEM: Revealed a benign abdomen. EXTREMITIES: No peripheral edema. SKIN: No new gross rash. LYMPHATICS: No peripheral lymphadenopathy. LABORATORY INVESTIGATIONS: Showed a sodium of 134, potassium 4.4, BUN of 45, and creatinine of 1.36. IMPRESSION: 1. Acute on chronic kidney disease, which seems to be improving. 2. Hyperkalemia, resolved, status post Kayexalate. 3. Mild hyponatremia. PLAN: 1. Continue current renal supportive measures. 2. Further management to be dependent on the clinical course. Job ID: [id number]
[2020-07-19] MEDS: Atorvastatin Calcium 40 MG TAB PO SCH (20:37)
[2020-07-20] MEDS: Acetaminophen 325 MG TAB PO PRN (01:20)
[2020-07-20 06:14] LABS: Anion Gap 15 mmol/L (10-20); BUN (Urea Nitrogen) 45 mg/dL (8.4-25.7); Calc. Creatinine Clearance 60 mL/min (70-130); Calcium 8.2 mg/dL (7.8-10.44); Carbon Dioxide 21 mmol/L (23-31); Chloride 100 mmol/L (98-107); Glucose 93 mg/dL (80-115); Potassium 4.5 mmol/L (3.5-5.1); Sodium 131 mmol/L (136-145)
--- NOTE | 2020-07-20 07:28 | PDOC.HOSPP ---
- Subjective Encounter Date: 07/20/20 Encounter Time: 10:00 Subjective: Patient reports that he is ambulating well. He did not even need to use a walker when he went with physical therapy today. He does have a walker at home in case he needs it and a cane. He feels much better after 10 L paracentesis yesterday which he usually gets weekly. He is eager to go home. - Objective Vital Signs & Weight: Vital Signs (12 hours) Temp Pulse Resp BP BP Pulse Ox 07/20/20 04:02 97.7 F 69 12 89/56 L 96 07/20/20 00:28 98.1 F 86 21 H 106/56 L 96 07/19/20 19:46 97.6 F 83 19 96/64 98 Weight Admit Weight 182 lb Weight 170 lb 8 oz Most Recent Monitor Data Heart Rate from ECG 79 NIBP 96/73 NIBP BP-Mean 80 Respiration from ECG 21 SpO2 96 I&O: 07/19/20 07/20/20 07/21/20 06:59 06:59 06:59 Intake Total 1880 418 Output Total 450 325 Balance 1430 93 Result Diagrams: 07/15/20 21:06 07/20/20 05:40 Hospitalist ROS - Review of Systems Constitutional: denies: fever, chills Respiratory: denies: cough, shortness of breath Cardiovascular: denies: chest pain, palpitations Gastrointestinal: denies: nausea, vomiting, abdominal pain - Medication Medications: Active Medications Generic Name Dose Route Start Last Admin Trade Name Freq PRN Reason Stop Dose Admin Acetaminophen 650 mg 07/15/20 22:42 07/20/20 01:20 Acetaminophen 325 Mg Tab PO 650 mg Q6H PRN Administration Headache/Fever/Mild Pain (1-3) Albumin Human 25 gm 07/19/20 15:05 07/19/20 15:22 Albumin 25% 25 Gm/100 Ml Bot IVPB 07/20/20 15:06 25 gm ONE PRN Administration 1 HOUR PRIOR TO PARACENTISIS Apixaban 5 mg 07/17/20 21:00 07/19/20 20:28 Apixaban 5 Mg Tab PO 5 mg BID CHANO Administration Aspirin 81 mg 07/18/20 09:00 07/19/20 10:13 Aspirin 81 Mg Enteric Coated Tablet PO 81 mg DAILY [facility]ANO Administration Atorvastatin Calcium 40 mg 07/16/20 21:00 07/19/20 20:37 Atorvastatin Calcium 40 Mg Tab PO 40 mg HS CHANO Administration Midodrine 5 mg 07/16/20 09:00 07/19/20 20:29 Midodrine Hcl 5 Mg Tab PO 5 mg TID CHANO Administration Senna/Docusate Sodium 1 tab 07/18/20 21:00 07/19/20 20:30 Senokot S 8.6-50 Mg Tab PO Not Given BID [facility] Sodium Bicarbonate 650 mg 07/17/20 21:00 07/19/20 20:29 Sodium Bicarbonate Tab 325 Mg Tab PO 650 mg BID CHANO Administration Sodium Chloride 10 ml 07/16/20 09:00 07/20/20 05:55 Flush - Normal Saline 10 Ml Syringe IVF Not Given Q12HR [facility] Hospitalist Exam Vitals: Vital Signs (12 hours) Temp Pulse Resp BP BP Pulse Ox 07/20/20 04:02 97.7 F 69 12 89/56 L 96 07/20/20 00:28 98.1 F 86 21 H 106/56 L 96 07/19/20 19:46 97.6 F 83 19 96/64 98 Weight Admit Weight 182 lb Weight 170 lb 8 oz Most Recent Monitor Data Heart Rate from ECG 79 NIBP 96/73 NIBP BP-Mean 80 Respiration from ECG 21 SpO2 96 General Appearance: NAD, awake alert ENT: moist mucosa Heart: RRR, no murmur, no gallops, no rubs Respiratory: CTAB, no wheezes, no rales, no ronchi Gastrointestinal: soft, non-tender, normal bowel sounds, distended (Mildly but very soft now) Extremities - other findings: Trace edema bilateral lower extreme Psychiatric: normal affect, normal behavior, A&O x 3 Hosp A/P - Plan (1) Right sided cerebral infarction Code(s): I63.9 - CEREBRAL INFARCTION, UNSPECIFIED Status: Acute Plan: s/p [facility] thrombectomy, continue ASA/Lipitor, general stroke protocol (2) Acute kidney injury Code(s): N17.9 - ACUTE KIDNEY FAILURE, UNSPECIFIED Status: Acute Plan: Improved, continue supportive mgmt, avoid nephrotoxic meds and limit contrast (3) Atrial fibrillation Code(s): I48.91 - UNSPECIFIED ATRIAL FIBRILLATION Status: Chronic Qualifiers: Atrial fibrillation type: longstanding persistent Qualified Code(s): I48.11 - Longstanding persistent atrial fibrillation (4) Chronic anticoagulation Code(s): Z79.01 - CORK SLABS SAWYER (CURRENT) USE OF ANTICOAGULANTS Status: Acute (5) Chronic hypotension Code(s): I95.89 - OTHER HYPOTENSION Status: Acute (6) Metabolic acidosis Code(s): E87.2 - ACIDOSIS Status: Acute (7) Ascites Code(s): R18.8 - OTHER ASCITES Status: Chronic Qualifiers: Ascites type: other type Qualified Code(s): R18.8 - Other ascites Plan: S/P paracentesis of 10L on 07/19/2020 with Albumin given x1. 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 Hold Coreg due to low blood pressures until see Dr. Galicia in the clinic. Home today with family and with home health PT/OT Head CT without contrast: 07/15/2020 COMPARISON: None HISTORY: Stroke protocol TECHNIQUE: Axial CT imaging at 2.5 mm intervals from vertex through skull base without contrast. Coronal and sagittal reformatted imaging obtained. FINDINGS: There is no intracranial hemorrhage, midline shift, or mass effect. There is a extra-axial mass with internal foci of coarse calcification measuring approximately 2.4 cm within the inferior right frontotemporal region on axial image 24. A meningioma is favored. No acute osseous abnormality. IMPRESSION: No intracranial hemorrhage. Probable right-sided meningioma. CT angiogram head CT angiogram neck: 07/15/2020 COMPARISON: None HISTORY: Left-sided stroke symptoms TECHNIQUE: Axial CT imaging at 1.25 mm intervals from the lung apices through the vertex with IV contrast using a CT angiogram protocol. Coronal and sagittal 3-D reformatted imaging obtained. FINDINGS: The imaged lung apices demonstrate scattered subpleural and centrilobular emphysematous change. There is an incompletely imaged transvenous pacing device present. The origin of the innominate artery, right common carotid artery, right subclavian artery, left common carotid artery, and left subclavian artery demonstrate patency. There is no hemodynamically significant stenosis on the basis of NASCET criteria involving the internal carotid artery or the common carotid artery on either side. There is mild atherosclerotic plaque at the origin of bilateral internal carotid arteries. The proximal aspect of the right vertebral artery is completely obscured by venous contrast media. The mid and distal right vertebral artery demonstrate patency. The left vertebral artery is dominant. Origin of the left vertebral artery appears unremarkable. The basilar artery is patent. Branches of the basilar artery appear patent. No central vascular occlusion or saccular aneurysm is seen involving the posterior circulation on either side. There is a filling defect involving the distal intracranial ICA on the right at its bifurcation with extension into the proximal M1 and proximal A1 segment on the right. The distal aspect of the right M1 segment appears completely occluded with diffuse lack of arterial blood flow involving the majority of the right MCA territory. The A1 segment is otherwise unremarkable bilaterally. Distal SORAIDA branches appear intact. The M1 segment, MCA bifurcation and the distal MCA branches on the left appear intact. There is a extra-axial mass on the right in the frontotemporal region with internal calcification and diffuse enhancement measuring 2.4 cm, most consistent with a meningioma. No lymphadenopathy is appreciated within the neck. No acute osseous abnormality is seen. 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 MRI BRAIN WITHOUT CONTRAST: History: Follow up CVA. FINDINGS: Correlation is made with the CT scan of 4:33 a.m. from the same date. There is restricted diffusion in the right MCA territory consistent with acute infarction. There is also a small focus of restricted diffusion in the right cerebellar hemisphere, consistent with an acute lacunar infarction. There is no hemorrhage, midline shift, or abnormal extraaxial fluid collections seen. The ventricular size is appropriate and the basilar cisterns patent. IMPRESSION: 1. Right MCA infarction. 2. Acute lacunar infarction in the right cerebellar hemisphere. 3. Clinically correlate for an embolic phenomenon. Modified barium swallow HISTORY: Dysphagia following cerebral infarction. FINDINGS: Exam was performed in conjunction with speech pathology with multiple consistencies. Video review is available and shows good bolus formation and retropulsion. Prominent early spill seen only with mechanical soft texture. With cup sip of thin liquid, there was an episode of deep penetration. No aspiration. Mild residue with good clearance upon secondary swallowing. The esophagus below the level of the hypopharynx was not evaluated. Please see separate detailed report from speech pathology. Sonographic guided paracentesis HISTORY: Symptomatic ascites. FINDINGS: After explaining the procedure and answering all questions, sonographic survey showed a large amount of free fluid throughout the abdomen. Sterile technique, buffered local anesthesia, sonographic guidance, and a right lateral approach were used to carefully advance a 19-gauge Yueh needle and catheter into the free fluid. Catheter was left to drain a total volume of 10.0 L of milky white liquid. Catheter was removed with minimal fluid remaining. Patient tolerated the procedure well and was returned in improved condition. IMPRESSION : Technically successful sonographic guided paracentesis 10.0 L.
[2020-07-20] MEDS: Midodrine HCl 5 MG TAB PO SCH ×2 (10:12→14:41)
[2020-07-20] MEDS: Senokot S 8.6-50 MG TAB PO SCH (10:12)
[2020-07-20] MEDS: Apixaban 5 MG TAB PO SCH (10:12)
[2020-07-20] MEDS: Sodium Bicarbonate Tab 325 MG TAB PO SCH (10:12)
[2020-07-20] MEDS: Aspirin 81 mg Enteric Coated Tablet PO SCH (10:12)
--- NOTE | 2020-07-20 12:04 | PDOC.DS.DS ---
Provider Date of Admission: 07/15/20 22:31 Date of Discharge: 07/20/20 Admitting Provider: Cristobal Cobb DO Consultations: Neurology (Dr. Elizabeth) Primary Care Physician: Sallie Black Hospital Course: This is a 59-year-old -[place] male with a known history of severe congestive heart failure ejection fraction 10 to 15% on chronic anticoagulation for chronic atrial fibrillation who sees Dr. Galicia and gets weekly paracentesis for ascites from his CHF. Patient presented to the hospital with acute onset of right-sided weakness. A CTA of the inupiat of [place] showed complete occlusion of a distal ICA artery with occlusion of the proximal MCA and SORAIDA on the right. Patient was not a candidate for TPA given his Eliquis use. As a result Dr. Ritter took him back to the [facility] and did a mechanical thrombectomy with adventist of flow. Patient was then watched closely in the ICU. He did have persistently low blood pressures and did end up having to be started on midodrin e 3 times a day. His Lasix and Coreg were held during his hospitalization. Patient had marked improvement in his weakness after the thrombectomy he was eventually able to ambulate the hallways without assistance and without use of a walker. He was cleared for discharge home with physical therapy and outpatient therapy with home health. Patient was started on aspirin and atorvastatin by neurology. He will need to follow-up with Dr. Galicia early next week and will need to continue with his weekly paracentesis. He did have 1 paracentesis of 10 L of fluid done while he was in the hospital. Pertinent Studies: Head CT without contrast: 07/15/2020 COMPARISON: None HISTORY: Stroke protocol TECHNIQUE: Axial CT imaging at 2.5 mm intervals from vertex through skull base without contrast. Coronal and sagittal reformatted imaging obtained. FINDINGS: There is no intracranial hemorrhage, midline shift, or mass effect. There is a extra-axial mass with internal foci of coarse calcification measuring approximately 2.4 cm within the inferior right frontotemporal region on axial image 24. A meningioma is favored. No acute osseous abnormality. IMPRESSION: No intracranial hemorrhage. Probable right-sided meningioma. CT angiogram head CT angiogram neck: 07/15/2020 COMPARISON: None HISTORY: Left-sided stroke symptoms TECHNIQUE: Axial CT imaging at 1.25 mm intervals from the lung apices through the vertex with IV contrast using a CT angiogram protocol. Coronal and sagittal 3-D reformatted imaging obtained. FINDINGS: The imaged lung apices demonstrate scattered subpleural and centrilobular emphysematous change. There is an incompletely imaged transvenous pacing device present. The origin of the innominate artery, right common carotid artery, right subclavian artery, left common carotid artery, and left subclavian artery demonstrate patency. There is no hemodynamically significant stenosis on the basis of NASCET criteria involving the internal carotid artery or the common carotid artery on either side. There is mild atherosclerotic plaque at the origin of bilateral internal carotid arteries. The proximal aspect of the right vertebral artery is completely obscured by venous contrast media. The mid and distal right vertebral artery demonstrate patency. The left vertebral artery is dominant. Origin of the left vertebral artery appears unremarkable. The basilar artery is patent. Branches of the basilar artery appear patent. No central vascular occlusion or saccular aneurysm is seen involving the posterior circulation on either side. There is a filling defect involving the distal intracranial ICA on the right at its bifurcation with extension into the proximal M1 and proximal A1 segment on the right. The distal aspect of the right M1 segment appears completely occluded with diffuse lack of arterial blood flow involving the majority of the right MCA territory. The A1 segment is otherwise unremarkable bilaterally. Distal SORAIDA branches appear intact. The M1 segment, MCA bifurcation and the distal MCA branches on the left appear intact. There is a extra-axial mass on the right in the frontotemporal region with internal calcification and diffuse enhancement measuring 2.4 cm, most consistent with a meningioma. No lymphadenopathy is appreciated within the neck. No acute osseous abnormality is seen. 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 MRI BRAIN WITHOUT CONTRAST: History: Follow up CVA. FINDINGS: Correlation is made with the CT scan of 4:33 a.m. from the same date. There is restricted diffusion in the right MCA territory consistent with acute infarction. There is also a small focus of restricted diffusion in the right cerebellar hemisphere, consistent with an acute lacunar infarction. There is no hemorrhage, midline shift, or abnormal extraaxial fluid collections seen. The ventricular size is appropriate and the basilar cisterns patent. IMPRESSION: 1. Right MCA infarction. 2. Acute lacunar infarction in the right cerebellar hemisphere. 3. Clinically correlate for an embolic phenomenon. Modified barium swallow HISTORY: Dysphagia following cerebral infarction. FINDINGS: Exam was performed in conjunction with speech pathology with multiple consistencies. Video review is available and shows good bolus formation and retropulsion. Prominent early spill seen only with mechanical soft texture. With cup sip of thin liquid, there was an episode of deep penetration. No aspiration. Mild residue with good clearance upon secondary swallowing. The esophagus below the level of the hypopharynx was not evaluated. Please see separate detailed report from speech pathology. Procedures: Mechanical thrombectomy M2 segment of right middle cerebral artery occlusion with complete adventist of flow onto 07/15/2020 Sonographic guided paracentesis HISTORY: Symptomatic ascites. FINDINGS: After explaining the procedure and answering all questions, sonographic survey showed a large amount of free fluid throughout the abdomen. Sterile technique, buffered local anesthesia, sonographic guidance, and a right lateral approach were used to carefully advance a 19-gauge Yueh needle and catheter into the free fluid. Catheter was left to drain a total volume of 10.0 L of milky white liquid. Catheter was removed with minimal fluid remaining. Patient tolerated the procedure well and was returned in improved condition. IMPRESSION : Technically successful sonographic guided paracentesis 10.0 L. Resuscitation Status: 07/15/20 22:42 Resuscitation Status Routine Resuscitation Status: FULL: Full Resuscitation Lab Results: 07/15/20 21:06 07/20/20 05:40 Abnormal Lab Results - Last 48 hrs 07/19/20 03:16: Sodium 134 L, BUN 45 H, Creatinine 1.36 H 07/20/20 05:40: Sodium 131 L, Carbon Dioxide 21 L, BUN 45 H, Creatinine 1.41 H Vitals: Vital Signs (12 hours) Temp Pulse Pulse Pulse Resp BP BP 07/20/20 08:59 75 69 90/70 89/73 L 07/20/20 08:00 97.3 F L 71 19 07/20/20 04:02 97.7 F 69 12 07/20/20 00:28 98.1 F 86 21 H BP BP Pulse Ox 07/20/20 08:59 07/20/20 08:00 91/68 100 07/20/20 04:02 89/56 L 96 07/20/20 00:28 106/56 L 96 Weight Admit Weight 182 lb Weight 170 lb 8 oz Most Recent Monitor Data Heart Rate from ECG 79 NIBP 96/73 NIBP BP-Mean 80 Respiration from ECG 21 SpO2 96 Physical Exam: The patient was seen and examined on the day of discharge. Problem Assessment: (1) Right sided cerebral infarction Code(s): I63.9 - CEREBRAL INFARCTION, UNSPECIFIED Status: Acute Plan: s/p [facility] thrombectomy, continue ASA/Lipitor, general stroke protocol (2) Acute kidney injury Code(s): N17.9 - ACUTE KIDNEY FAILURE, UNSPECIFIED Status: Acute Plan: Improved, continue supportive mgmt, avoid nephrotoxic meds and limit contrast (3) Atrial fibrillation Code(s): I48.91 - UNSPECIFIED ATRIAL FIBRILLATION Status: Chronic Qualifiers: Atrial fibrillation type: longstanding persistent Qualified Code(s): I48.11 - Longstanding persistent atrial fibrillation (4) Chronic anticoagulation Code(s): Z79.01 - RESIDENCE HALL DIRECTOR (CURRENT) USE OF ANTICOAGULANTS Status: Acute (5) Chronic hypotension Code(s): I95.89 - OTHER HYPOTENSION Status: Acute (6) Metabolic acidosis Code(s): E87.2 - ACIDOSIS Status: Acute (7) Ascites Code(s): R18.8 - OTHER ASCITES Status: Chronic Qualifiers: Ascites type: other type Qualified Code(s): R18.8 - Other ascites Plan: S/P paracentesis of 10L on 07/19/2020 with Albumin given x1. Plan of Treatment: We will discharge patient home with home physical therapy and Occupational Therapy. We will hold his Coreg due to hypotension but will continue patient's Lasix starting tomorrow. We will also resume patient's amiodarone and digoxin for his chronic atrial fibrillation. He does need to follow-up with Dr. Galicia early next week. Time Spent in discharge related activities (mins): 32 Plan Prescriptions: Aspirin [Ecotrin Low Strength] 81 mg PO DAILY #30 tab Atorvastatin Calcium [Lipitor] 40 mg PO HS #30 tab Midodrine HCl [ProAmatine] 5 mg PO TID #90 tab Sennosides/Docusate Sodium [Senokot S] 1 tab PO BID #60 tab Home Medications: Medication Instructions Recorded Confirmed Type Amiodarone [Cordarone] 200 mg PO BID 06/14/20 07/13/20 History Apixaban [Eliquis] 5 mg PO BID 06/14/20 07/13/20 History Digoxin [Digox] 62.5 mcg PO DAILY 06/14/20 07/13/20 History Acetaminophen W/ Codeine 1 tab PO DAILY PRN 06/21/20 07/13/20 History [Acetaminophen/Codeine #3] Aspirin [Ecotrin Low Strength] 81 mg PO DAILY #30 tab 07/20/20 Rx Atorvastatin Calcium [Lipitor] 40 mg PO HS #30 tab 07/20/20 Rx Midodrine HCl [ProAmatine] 5 mg PO TID #90 tab 07/20/20 Rx Sennosides/Docusate Sodium 1 tab PO BID #60 tab 07/20/20 Rx [Senokot S] Allergies: spironolactone Allergy (Verified 07/13/20 14:04) Activity:: Activity as Tolerated Nourishment:: Fluid Restriction Diet (Less than 1500 mL/day), Heart Healthy Diet, Low Sodium Diet Therapies:: Not Applicable Equipment/Supplies:: Not Applicable IV Therapy:: Not Applicable Referrals: Carlo Galicia MD [Affiliate] - (Early next week May resume home Lasix tomorrow Hold Coreg until see Dr. Galicia in the clinic) Sallie Maldonado [Primary Care Provider] - Disposition: HOME HEALTH Quality CORE MEASURES:: HF, Stroke/TIA Did you prescribe antithrombotic therapy?: Yes Did you prescribe anticoagulant for A Fib/Flutter?: Yes Did you prescribe a statin medication?: Yes
[2020-07-20 12:05] VITALS: BP 87/56; TEMP 97.9
--- NOTE | 2020-07-20 14:33 | PDOC.NEUPN ---
- Subjective Encounter Date: 07/20/20 Subjective: Mr. Covarrubias did not have any new complaints today. at bedside. - Objective Vital Signs & Weight: Vital Signs (12 hours) Temp Pulse Pulse Pulse Resp BP BP 07/20/20 12:00 97.9 F 67 16 07/20/20 08:59 75 69 90/70 89/73 L 07/20/20 08:00 97.3 F L 71 19 07/20/20 04:02 97.7 F 69 12 BP BP Pulse Ox 07/20/20 12:00 87/56 L 95 07/20/20 08:59 07/20/20 08:00 91/68 100 07/20/20 04:02 89/56 L 96 Weight Admit Weight 182 lb Weight 170 lb 8 oz Most Recent Monitor Data Heart Rate from ECG 79 NIBP 96/73 NIBP BP-Mean 80 Respiration from ECG 21 SpO2 96 I&O: 07/19/20 07/20/20 07/21/20 06:59 06:59 06:59 Intake Total 1880 418 474 Output Total 450 325 148 Balance 1430 93 326 Result Diagrams: 07/15/20 21:06 07/20/20 05:40 Radiology Reviewed by me: Yes EKG Reviewed by me: Yes ROS - Review of Systems Constitutional: denies: fever, chills, sweats, weakness, malaise, other Eyes: denies: pain, vision change, conjunctivae inflammation, eyelid inflammation, redness, other ENT: denies: ear pain, ear discharge, nose pain, nose discharge, nose congestion, mouth pain, mouth swelling, throat pain, throat swelling, other Gastrointestinal: denies: nausea, vomiting, abdominal pain, diarrhea, constipation, melena, hematochezia, other Genitourinary: denies: dysuria, frequency, incontinence, hematuria, retention, other Musculoskeletal: denies: neck pain, shoulder pain, arm pain, back pain, hand pain, leg pain, foot pain, other - Medication Medications: Active Medications Generic Name Dose Route Start Last Admin Trade Name Freq PRN Reason Stop Dose Admin Acetaminophen 650 mg 07/15/20 22:42 07/20/20 01:20 Acetaminophen 325 Mg Tab PO 650 mg Q6H PRN Administration Headache/Fever/Mild Pain (1-3) Albumin Human 25 gm 07/19/20 15:05 07/19/20 15:22 Albumin 25% 25 Gm/100 Ml Bot IVPB 07/20/20 15:06 25 gm ONE PRN Administration 1 HOUR PRIOR TO PARACENTISIS Apixaban 5 mg 07/17/20 21:00 07/20/20 10:12 Apixaban 5 Mg Tab PO 5 mg BID CHANO Administration Aspirin 81 mg 07/18/20 09:00 07/20/20 10:12 Aspirin 81 Mg Enteric Coated Tablet PO 81 mg DAILY CHANO Administration Atorvastatin Calcium 40 mg 07/16/20 21:00 07/19/20 20:37 Atorvastatin Calcium 40 Mg Tab PO 40 mg HS CHANO Administration Midodrine 5 mg 07/16/20 09:00 07/20/20 10:12 Midodrine Hcl 5 Mg Tab PO 5 mg TID CHANO Administration Senna/Docusate Sodium 1 tab 07/18/20 21:00 07/20/20 10:12 Senokot S 8.6-50 Mg Tab PO 1 tab BID CHANO Administration Sodium Bicarbonate 650 mg 07/17/20 21:00 07/20/20 10:12 Sodium Bicarbonate Tab 325 Mg Tab PO 650 mg BID CHANO Administration Sodium Chloride 10 ml 07/16/20 09:00 07/20/20 10:13 Flush - Normal Saline 10 Ml Syringe IVF 10 ml Q12HR CHANO Administration - Exam General Appearance: awake alert Eye: PERRL ENT: normocephalic atraumatic Neck: supple Respiratory: CTAB Cardiovascular: RRR Gastrointestinal: soft Extremities: no cyanosis Skin: normal turgor Neurological: no new deficit, facial droop, speech deficit Musculoskeletal: normal tone, no muscle wasting PSYCH: normal affect, normal behavior, A&O x 3, oriented to person, oriented to place, oriented to time Results - Labs Result Diagrams: 07/15/20 21:06 07/20/20 05:40 Lab results: WBC 13.7 thou/uL (4.8-10.8) H 07/15/20 21:06 Hgb 13.2 g/dL (14.0-18.0) L 07/15/20 21:06 Hct 41.8 % (42.0-52.0) L 07/15/20 21:06 MCV 94.5 fL (78.0-98.0) 07/15/20 21:06 Plt Count 181 thou/uL (130-400) 07/15/20 21:06 Neutrophils % 84.4 % (42.0-75.0) H 07/15/20 21:06 Sodium 131 mmol/L (136-145) L 07/20/20 05:40 Potassium 4.5 mmol/L (3.5-5.1) 07/20/20 05:40 Chloride 100 mmol/L (98-107) 07/20/20 05:40 Carbon Dioxide 21 mmol/L (23-31) L 07/20/20 05:40 BUN 45 mg/dL (8.4-25.7) H 07/20/20 05:40 Creatinine 1.41 mg/dL (0.7-1.3) H 07/20/20 05:40 Glucose 93 mg/dL (80-115) 07/20/20 05:40 Calcium 8.2 mg/dL (7.8-10.44) 07/20/20 05:40 Total Bilirubin 0.5 mg/dL (0.2-1.2) 07/15/20 21:06 AST 15 U/L (5-34) 07/15/20 21:06 ALT 8 U/L (8-55) 07/15/20 21:06 Alkaline Phosphatase 91 U/L (40-110) 07/15/20 21:06 Creatine Kinase 42 U/L (30-200) 07/15/20 21:06 CK-MB (CK-2) 1.8 ng/mL (0-6.6) 07/15/20 21:06 Troponin I 0.145 ng/mL (< 0.028) H 07/16/20 03:15 Serum Total Protein 4.8 g/dL (5.8-8.1) L 07/15/20 21:06 Albumin 2.3 g/dL (3.4-4.8) L 07/15/20 21:06 - Radiology Interpretation MRI - head Additional Comment: MRI of the brain was consistent with acute infarction. PN A/P (1) Right sided cerebral infarction Code(s): I63.9 - CEREBRAL INFARCTION, UNSPECIFIED Status: Acute (2) Acute kidney injury Code(s): N17.9 - ACUTE KIDNEY FAILURE, UNSPECIFIED Status: Acute (3) Atrial fibrillation Code(s): I48.91 - UNSPECIFIED ATRIAL FIBRILLATION Status: Chronic Qualifiers: Atrial fibrillation type: longstanding persistent Qualified Code(s): I48.11 - Longstanding persistent atrial fibrillation (4) Chronic anticoagulation Code(s): Z79.01 - ASSISTED (CURRENT) USE OF ANTICOAGULANTS Status: Acute (5) Chronic hypotension Code(s): I95.89 - OTHER HYPOTENSION Status: Acute (6) History of chronic kidney disease Code(s): Z87.448 - PERSONAL HISTORY OF OTHER DISEASES OF URINARY SYSTEM Status: Acute (7) Hyperkalemia Code(s): E87.5 - HYPERKALEMIA Status: Acute (8) Metabolic acidosis Code(s): E87.2 - ACIDOSIS Status: Acute - Plan Daily Plan: plan discussed w/ family, PT/OT, speech therapy ( at bedside) 59 year old presented with stroke like symptoms and is s/p mechanical thrombectomy. Neurological deficits much improved since admission. Patient underwent modified barium swallow and is cleared for oral intake MRI brain consistent with acute infarction in the RMCA territory and also in the right cerebellar region. CTA Head showed acute thrombosis of ICA intracranially on the right and is status post mechanical thrombectomy. Continue Eliquis for secondary stroke prevention and atrial fibrillation. Continue Telemetry Neurochecks every 4 hours. Control of blood pressure and blood glucose Strict control of blood glucose. Continue aspirin and high intensity statin for secondary stroke prevention. PT/OT/Speech Continue home medications Acute on chronic renal failure. Nephrology is on board DVT prophylaxis with SCD's. Continue medical management per primary team and nephrology. Plan discussed with the patient and the .
--- NOTE | 2020-07-24 22:27 | CCLSPC ---
MAP MAKER: No first aid trainer. INDICATION: Right ICA terminus occlusion, right MCA occlusion, right SORAIDA occlusion. PREOPERATIVE DIAGNOSES: Right ICA terminus occlusion, right MCA occlusion, right SORAIDA occlusion. POSTOPERATIVE DIAGNOSIS: Right distal M2 occlusion. ANESTHESIA: General. PROCEDURE: Cerebral angiography with mechanical thrombectomy. TECHNIQUE: The patient was brought into the angiogram suite and placed under general anesthesia. Both groins were prepped and draped in the usual sterile fashion. 1% lidocaine was used to inject the right groin. A 5 Guyanese micropuncture set was used to gain access to the right common femoral artery. Using a Seldinger technique, an 8-Guyanese sheath was placed. An 8-Guyanese diagnostic catheter was passed over an 8-Guyanese Concentric guide catheter which was passed over a Bluebridge Digital guidewire and advanced into the aortic arch where the right internal carotid artery was selectively catheterized. An AP and lateral angiogram was then performed which revealed baptist of flow along the terminal aspect of the right internal carotid artery but complete occlusion of the midportion of the right M2 segment of the middle cerebral artery. As such, a Trevo device was applied one time with complete baptist of flow starting with a TICI of 0 and baptist of flow to TICI score of 3. All catheters were then removed. Hemostasis was maintained with manual compression. The procedure came to an end without any known complication. IMPRESSION: The patient underwent successful angiography. Angiography revealed the presence of occlusion of the right M2 segment of the middle cerebral artery. Mechanical thrombectomy restored normal flow throughout the right hemisphere. Job ID: [id number]
== END 2020-07-20 15:35 | disposition home health service (06) | DRG 24 ==
LOC: ERS 20:37 → SDC 21:58 → CCU 22:31 → 2SE 07-19 13:54
PROVIDERS: ADMIT Family Medicine; ATTEND Family Medicine
PROC: 03CK3ZZ Extirpation of Matter from Right Internal Carotid Artery, Percutaneous Approach (ICD-10-PCS; 2020-07-15)
PROC: B31R1ZZ Fluoroscopy of Intracranial Arteries using Low Osmolar Contrast (ICD-10-PCS; 2020-07-15)
PROC: 0W9G3ZZ Drainage of Peritoneal Cavity, Percutaneous Approach (ICD-10-PCS; principal; 2020-07-19)
DX: I63.9 Cerebral infarction, unspecified (principal); G81.94 Hemiplegia, unspecified affecting left nondominant side; I50.22 Chronic systolic (congestive) heart failure; I42.0 Dilated cardiomyopathy; N17.9 Acute kidney failure, unspecified; E87.2 Acidosis; R18.8 Other ascites; I48.11 Longstanding persistent atrial fibrillation; E87.1 Hypo-osmolality and hyponatremia; Z20.822 Contact with and (suspected) exposure to COVID-19; I66.01 Occlusion and stenosis of right middle cerebral artery; N18.30 Chronic kidney disease, stage 3 unspecified; E87.5 Hyperkalemia; I95.89 Other hypotension; R47.81 Slurred speech; R29.810 Facial weakness; N14.1 Nephropathy induced by other drugs, medicaments and biological substances; T50.8X5A Adverse effect of diagnostic agents, initial encounter; R47.1 Dysarthria and anarthria; G89.29 Other chronic pain; M54.9 Dorsalgia, unspecified; Z86.73 Personal history of transient ischemic attack (TIA), and cerebral infarction without residual deficits; Z88.8 Allergy status to other drugs, medicaments and biological substances; Z79.899 Other long term (current) drug therapy; Z79.01 Long term (current) use of anticoagulants; Z87.891 Personal history of nicotine dependence
CPT/HCPCS: 36415; 36416; 36596; 49083; 70450; 70496; 70498; 70551; 74230; 75902; 80048; 80053; 80061; 82550; 82553; 84133; 84300; 84443; 84484; 85025; 85610; 85730; 93005; 94760; C1887; J1644; J2370; J2405; J2997; J3010; J3490; P9047; Q9967; U0002

== ENCOUNTER 2021-10-09 10:59 | Outpatient (CLI) | payer MEDICARE ==
[2021-10-09 12:46] LABS: Anion Gap 14 mmol/L (10-20); BUN (Urea Nitrogen) 27 mg/dL (8.4-25.7); Calc. Creatinine Clearance 0 mL/min (70-130); Calcium 8.6 mg/dL (7.8-10.44); Carbon Dioxide 24 mmol/L (23-31); Chloride 103 mmol/L (98-107); Glucose 67 mg/dL (80-115); Potassium 5.5 mmol/L (3.5-5.1); Sodium 135 mmol/L (136-145)
[2021-10-10 01:01] LABS: SARS-CoV-2 PCR by NAA Not Detected (NotDetected)
== END 2021-10-09 11:00 | disposition home or self-care (01) ==
LOC: LABBT 10:59
PROVIDERS: ATTEND Surgery
DX: Z01.818 Encounter for other preprocedural examination (principal); K40.90 Unilateral inguinal hernia, without obstruction or gangrene, not specified as recurrent; Z20.822 Contact with and (suspected) exposure to COVID-19
CPT/HCPCS: 80048; 93005; U0003; U0005; 93010

== ENCOUNTER 2021-10-11 10:05 | Day surgery (SDC) | payer MEDICARE ==
[2021-10-09 09:23] VITALS: BMI 21.7
[2021-10-11] MEDS ORDERED: Lidocaine 1% MPF 2 ML VIAL ONE (11:35)
[2021-10-11] MEDS ORDERED: Bupivacaine PF 0.5% 30 ML VIAL ONE (11:46)
[2021-10-11] MEDS ORDERED: Bupivacaine 0.25% 10 ML VIAL ONE ×2 (11:46→13:41)
[2021-10-11] MEDS ORDERED: Lidocaine 1% w/Epinephrine 1:100K 20 ML VIAL ONE ×2 (11:46→13:41)
[2021-10-11] MEDS ORDERED: Midazolam HCl 2 mg/2 ml Vial ONE (14:00)
[2021-10-11] MEDS ORDERED: fentaNYL Citrate/PF 100 MCG/2 ML SYRINGE ONE (14:00)
[2021-10-11] MEDS ORDERED: Ketamine 50 MG/ML (10ML VIAL) ONE (14:00)
[2021-10-11] MEDS ORDERED: Glycopyrrolate 0.2 MG/ML 5 ML SYRINGE ONE (14:05)
[2021-10-11] MEDS ORDERED: ceFAZolin (BATCH) 2 GM/100 ML BAG ONE (14:23)
[2021-10-11] MEDS ORDERED: HYDROcodone/Acetaminophen 5/325 mg Tablet ONE (17:17)
== END 2021-10-11 18:27 | disposition home or self-care (01) ==
LOC: SDC 10:05
PROVIDERS: ATTEND Surgery
PROC: 0YU50JZ Supplement Right Inguinal Region with Synthetic Substitute, Open Approach (ICD-10-PCS; principal; 2021-10-11)
DX: K40.30 Unilateral inguinal hernia, with obstruction, without gangrene, not specified as recurrent (principal); I11.0 Hypertensive heart disease with heart failure; I50.9 Heart failure, unspecified; R18.8 Other ascites; I25.10 Atherosclerotic heart disease of native coronary artery without angina pectoris; Z79.01 Long term (current) use of anticoagulants; Z79.899 Other long term (current) drug therapy; Z86.14 Personal history of Methicillin resistant Staphylococcus aureus infection; Z95.810 Presence of automatic (implantable) cardiac defibrillator
CPT/HCPCS: 49507; C1781; J0690; J1642; J2250; S0020